=== PATIENT | female | born 1955 | race Hispanic/Latino ===

== ENCOUNTER 2021-04-22 13:41 | Emergency (ER) | payer OTHER ==
--- OUTSIDE RECORDS SUMMARY | 2021-04-22 13:44 | XMS REPORT | Continuity of Care Document ---
:1955 Author Organization [facility] t Address [address] [place] [address] Care Team Providers Name Role Phone Eric Vinson MD Primary Care Physician TYLER BEE Attending Clinician Unavailable Nurse, Pob Immunization Attending Clinician Unavailable Tyler Bee DO Attending Clinician Bibiana GIPSON Attending Clinician Unavailable Payers Payer Name Policy Type Policy Number Effective Date Expiration Date S marta [facility] [id number] 2019 00:00:00 HMO ALLIED BENEFIT [id number] 2014 00:00:00 Problems Condition Condition Condition Status Onset Resolution Last Treating Co mments Source Name Details Category Date Date Treatment Clinician Date Anxiety Anxiety Disease Active [facility] Insomnia Insomnia Disease Active Unive rs ity of [facility] Depression Depression Disease Active U nivers ity of [facility] Arthritis Arthritis Disease Active Uni vers ity of [facility] HLD HLD Disease Active Univers (hyperlipi (hyperlipi it y of demia) demia) [facility] Anemia Anemia Disease Active Overview: Univer s Formattin ity of g of this [place] note Medical might be Branch different from the original. in the past Allergies, Adverse Reactions, Alerts Allergy Allergy Status Severity Reaction(s) Onset Inactive Treating Comm ents Source Name Type Date Date Clinician CODEINE DRUG Active N/V 2015-02 Univers INGREDI 0-09 ity of 00:00: [place] [facility] Codeine Propensi Active Nausea 2015-02 Univers ty to and/or 0-09 ity of adverse Vomiting 00:00: [place] reaction [facility] s [facility] Social History Social Habit Start Date Stop Date Quantity Comments Source History of tobacco Cigarette Smoker University of use [place] [facility] History [facility] o f Alcohol Frequency [place] [facility] History [facility] o f Alcohol Std Drinks [place] [facility] History [facility] o f Alcohol Binge [place] [facility] Alcohol intake 2016-04-18 2016-04-18 0 /d University of 00:00:00 00:00:00 [facility] Cigarettes smoked 2015-08-08 2015-08-08 Univers ity of current (pack per 00:00:00 00:00:00 [facility] ed) - Reported Branch Cigarette 2015-08-08 2015-08-08 University of pack-years 00:00:00 00:00:00 [facility] Alcohol Comment 2015-08-08 2015-08-08 social occasional Un iversity of 00:00:00 00:00:00 sometimes [facility] Tobacco Comment 2015-08-08 2015-08-08 wants to stop on Uni versity of 00:00:00 00:00:00 her own [facility] Sex [birth year] Universit y of 00:00:00 00:00:00 [facility] Smoking Status Start Date Stop Date Source Current some day smoker 2015-08-08 00:00:00 Univ ersity of [facility] Medications Ordered Filled Start Stop Current Ordering Indication Dosage Frequency Signature Comments Components Source Medication Medication Date Date Medication? Clinician (SIG) Name Name aspirin 81 Yes 81mg Take 81 mg U nivers mg chewable 3-10 by mouth ity of tablet 12:04: daily. [place] [facility] acetaminoph Yes [id number] 2 - 1 Univers en-codeine 3-10 tab Every ity of 300-30 mg 00:00: 4hrs as [place] tablet 00 needed for Medical pain or Branch cough requiring narcotic acetaminoph Yes /2 - 1 Uni vers en-codeine 3-10 tab Every ity of 300-30 mg 00:00: 4hrs as [place] tablet 00 needed for Medical pain or Branch cough requiring narcotic traMADOL 2015-02 Yes 50mg Take 1 Univers (ULTRAM) 50 0-09 tablet by ity of mg tablet 00:00: mouth [place] 00 every 6 Medical (six) Branch hours as needed for Pain (scale 7-10). methocarbam 2015-02 Yes 500mg Take 1 Uni vers ol 0-09 tablet by ity of (ROBAXIN) 00:00: mouth 4 [place] 500 mg 00 (four) Medical tablet times Branch daily. pravastatin 2016- Yes 40mg Take 1 Univ ers (PRAVACHOL) 7-08 tablet by ity of 40 mg 00:00: mouth at [place] tablet 00 bedtime. Medical Branch mirtazapine 2015- Yes 15mg Take 1 Univ ers (REMERON) 6-29 tablet by ity o f 15 mg 00:00: mouth at [place] tablet 00 bedtime. Medical Branch hydrOXYzine 2015- Yes 25mg Take 1 Univ ers (ATARAX) 25 6-29 tablet by [place] of mg tablet 00:00[place] 00 bed[place] [facility] [place] Immunizations Ordered Filled Immunization Date Status Comments Guero e Immunization Name Name SARS-COV-2 COVID-19 2020-12-21 Completed Unive rsity of MODERNA BOOSTER 00:00:00 [facility] ica VACCINE Branch SARS-COV-2 COVID-19 2020-04-11 Completed Unive rsity of MODERNA VACCINE 00:00:00 [facility] ical Branch SARS-COV-2 COVID-19 2020-03-14 Completed Unive rsity of MODERNA VACCINE 00:00:00 [facility] Procedures Procedure Date / Time Performed Performing Clinician Guero jose alejandro SARS-COV-2 COVID-19 2020-12-21 17:27:49 Doctor Unassigned, No Un iversity of [place] VACCINE Name [facility] Branch BOOSTER,0.25ML,IM (MODERNA) Encounters Start End Encounter Admission Attending Care Care Encounter Source Date/Time Date/Time Type Type Clinicians Facility Department ID 2020-12-21 2020-12-21 Outpatient R DOROTHEA [facility] [id number] Univers 11:30:00 11:30:00 REUBEN spear [facility] 2020-12-21 2020-12-21 Imm/Inj Nurse, Yeyo Pob Immunization [facility] [id number] Univers 11:19:01 11:19:20 Visit Reuben Bee [id number] itRosalinda [id number] [place] [id number] N[place] dical [facility] [id number] [facility] 2020-04-11 2020-04-11 Outpatient Nuha GIPSON [facility] [id number] Univers 15:40:00 15:40:00 OTIS [id number] [facility] 2020-04-11 2020-04-11 Outpatient Nuha GIPSON [facility] [id number] Univers 15:40:00 15:40:00 OTIS [facility] 2020-03-14 2020-03-14 Outpatient Nuha GIPSON [facility] [id number] Univers 18:00:00 18:00:00 OTIS [facility] 2020-03-14 2020-03-14 Outpatient Nuha GIPSON [facility] [id number] Univers 18:00:00 18:00:00 OTIS [id number] [facility] Results This patient has no known results.
[2021-04-22 15:46] LABS: SARS-COV-2 RT PCR NEGATIVE (NEGATIVE)
[2021-04-22 16:09] LABS: Urine Blood Trace-intact (Negative); Urine Glucose Negative (Negative); Urine Protein Negative (Negative)
[2021-04-22] MEDS ORDERED: NA CHLORIDE 0.9% 1,000 ML ONE (16:17)
[2021-04-22 16:25] LABS: Absolute Lymphocytes (CBC) 1.3 K/uL (0.7-4.9); Hematocrit 36.9 % (36.0-45.0); Lymphocytes % 12.2 % (15.3-44.8); MPV 8.1 fL (7.6-11.3); RBC Red Blood Cell Count 4.02 M/uL (3.86-4.86); Urine Bacteria <20 /HPF (<20); Urine Mucus 1+ /HPF (NONE SEEN); Urine RBC <5 /HPF (NONE SEEN)
--- NOTE | 2021-04-22 17:03 | RAD REPORT ---
EXAM DESCRIPTION: Patricia Pa And Lat (2 Views)04/22/2021 4:26 pm CLINICAL HISTORY: Cough COMPARISON: None FINDINGS: Mild increased density mid lateral right lung Left lung appears clear. The heart is normal size IMPRESSION: Mild increased density mid lateral right lung equivocal for a mild pneumonia
--- NOTE | 2021-04-22 17:42 | ER ---
Nurse's Notes [facility] Name: Consuelo Bliss Age: 65 yrs Sex: Female : 1955 Arrival Date: 04/22/2021 Time: 13:46 Bed 19 Private MD: Diagnosis: Pneumonia, unspecified organism Presentation: 04/22 13:55 Chief complaint: Patient states: she wasn't feeling well last week and called her PCP. ap3 Patient states her PCP started her on a Z-Pack, which she completed Thursday04/20/2021. Patient presents to the ED today with recurring symptoms from last week which include decreased appetite, chills, and generalized fatigue which restarted yesterday 04/21/2021. Coronavirus screen: chills, fatigue. Ebola Screen: No symptoms or risks identified at this time. Initial Sepsis Screen: Does the patient meet any 2 criteria? No. Patient's initial sepsis screen is negative. Does the patient have a suspected source of infection? No. Patient's initial sepsis screen is negative. Risk Assessment: Do you want to hurt yourself or someone else? Patient reports no desire to harm self or others. Onset of symptoms was April 21, 2021. 13:55 Method Of Arrival: Ambulatory ap3 13:55 Acuity: ARMAND 4 ap3 14:01 Acuity: ARMAND 3 jl7 Triage Assessment: 13:59 General: Appears in no apparent distress. Behavior is calm, cooperative, Reports chills ap3 for fatigue for. Pain: Denies pain. Neuro: Level of Consciousness is awake, alert, obeys commands, Gait is steady. Respiratory: Airway is patent Respiratory effort is even, unlabored, Respiratory pattern is regular, symmetrical. GI: Reports anorexia. Historical: - Allergies: 13:58 Singulair; ap3 - Home Meds: 13:58 Xanax 1 mg oral tab [Active]; Omeprazole Oral [Active]; ap3 - PMHx: 13:58 Anxiety; GERD; ap3 - Immunization history:: Client reports receiving the 2nd dose of the Covid vaccine, Pneumococcal vaccine is not up to date, Flu vaccine is up to date. - Social history:: Smoking status: Patient denies any tobacco usage or history of. Screenin:00 Abuse screen: Denies threats or abuse. Nutritional screening: No deficits noted. ap3 Tuberculosis screening: No symptoms or risk factors identified. Fall Risk None identified. No fall in past 12 months (0 pts). Assessment: 16:10 General: Appears comfortable, Behavior is calm, cooperative. Pain: Denies pain. Neuro: ic1 Level of Consciousness is awake, alert, obeys commands, Oriented to person, place, situation. Cardiovascular: No deficits noted. Respiratory: No deficits noted. GI: Reports nausea, vomiting, decreased appetite. : No deficits noted. EENT: No deficits noted. Derm: No deficits noted. Musculoskeletal: No deficits noted. 16:32 Reassessment: Patient appears in no apparent distress at this time. No changes from ic1 previously documented assessment. Patient and/or family updated on plan of care and expected duration. Pain level reassessed. Patient is alert, oriented x 3, equal unlabored respirations, skin warm/dry/pink. 18:35 Reassessment: ERP notified of elevated BP, no new orders at this time. Primary RN ginger7 reports antibiotic just started and pt will be discharged once medication is complete. 18:51 Reassessment: Patient appears in no apparent distress at this time. No changes from ic1 previously documented assessment. Patient and/or family updated on plan of care and expected duration. Pain level reassessed. Patient is alert, oriented x 3, equal unlabored respirations, skin warm/dry/pink. Patient denies pain at this time. Vital Signs: 13:55 BP 147 / 75; Pulse 88; Resp 16; Temp 98.8(O); Pulse Ox 97% ; Weight 72.57 kg; Height 5 ap3 ft. 2 in. (157.48 cm); 16:32 BP 163 / 74; Pulse 80; Resp 16; Pulse Ox 95% on R/A; ic1 18:32 BP 174 / 90; Pulse 74; Resp 15; Pulse Ox 97% ; jl7 18:52 BP 141 / 91; Pulse 87; Resp 16; Pulse Ox 97% on R/A; ic1 19:27 BP 151 / 70 LA Sitting (auto/reg); Pulse 86 MON; Resp 18; Pulse Ox 100% on R/A; Pain sv1 0/10; 13:55 Body Mass Index 29.26 (72.57 kg, 157.48 cm) ap3 ED Course: 13:46 Patient arrived in ED. ja2 13:58 Triage completed. ap3 14:00 Arm band placed on right wrist. ap3 15:02 Brant Tinajero NP is PHCP. pm1 15:02 Gaudencio Manzano MD is Attending Physician. pm1 15:48 Eliana Wade RN is Primary Nurse. ic1 16:10 Patient has correct armband on for positive identification. Bed in low position. Call ic1 light in reach. Side rails up X2. Pulse ox on. NIBP on. Door closed. Lights dimmed. Warm blanket given. 16:12 No provider procedures requiring assistance completed. Inserted saline lock: 20 gauge ic1 in right antecubital area, using aseptic technique. Blood collected. 16:12 Urine Microscopic Only Sent. ic1 16:12 Strep Sent. ic1 16:12 CBC with Automated Diff Sent. ic1 16:13 CBC with Diff Sent. ic1 16:13 BMP Sent. ic1 16:25 Chest Pa And Lat (2 Views) XRAY In Process Unspecified. EDMS 19:27 IV discontinued. sv1 Administered Medications: 16:16 Drug: NS 0.9% 1000 ml Route: IV; Rate: 1000 ml; Site: right antecubital; ic1 19:30 Follow up: Response: No adverse reaction; IV Status: Completed infusion sv1 17:38 CANCELLED (Physician Discretion): AZITHromycin 500 mg PO once pm1 17:47 Not Given (Physician Discretion): Rocephin (cefTRIAXone) 1 grams IM once pm1 17:50 Drug: Rocephin (cefTRIAXone) 1 grams Route: IV; Rate: calculated rate; Infused Over: 30 ic1 mins; Site: right antecubital; Delivery: Primary tubing; 18:30 Follow up: IV Status: Completed infusion; IV Intake: 100ml ic1 18:30 Dru mg of (AZITHromycin 500 mg, NS 0.9% 250 ml) Route: IVPB; Infused Over: 1 hrs; ic1 Site: right antecubital; Intake: 18:30 IV: 100ml; Total: 100ml. ic1 Outcome: 17:40 Discharge ordered by . pm1 19:27 Discharged to home ambulatory. sv1 19:27 Condition: improved 19:27 Discharge instructions given to patient, family. 19:31 Patient left the ED. sv1 Signatures: Dispatcher [employer] EDMS Lior Brant, DISPLAY DESIGNER OUTSIDE DISPLAY DESIGNER OUTSIDE pm1 Martin Carrasquillo RN RN jl7 Pastora Rosales RN RN ap3 Vanna Saldaña Steven, RN RN sv1 Eliana Wade RN RN ic1 Corrections: (The following items were deleted from the chart) 13:59 13:58 Allergies: No Known Allergies; ap3 ap3
--- NOTE | 2021-04-22 17:42 | EDPHYS ---
Physician Documentation [facility] Name: Consuelo Bliss Age: 65 yrs Sex: Female : 1955 Arrival Date: 04/22/2021 Time: 13:46 Bed 19 Private MD: ED Physician Gaudencio Manzano HPI: 04/22 15:53 This 65 yrs old Female presents to ER via Ambulatory with complaints of pm1 Decreased Appetite, Fever. 15:53 The patient or guardian reports cough, and subjective fever. Onset: The pm1 symptoms/episode began/occurred 1 week(s) ago. Severity of symptoms: in the emergency department the symptoms are actually worse. Modifying factors: The symptoms are alleviated by nothing, the symptoms are aggravated by nothing. Associated signs and symptoms: Pertinent positives: decreased appetite. The patient has not experienced similar symptoms in the past. The patient has not recently seen a physician, the patient's primary care provider is Dr. Vinson. Historical: - Allergies: 13:58 Singulair; ap3 - Home Meds: 13:58 Xanax 1 mg oral tab [Active]; Omeprazole Oral [Active]; ap3 - PMHx: 13:58 Anxiety; GERD; ap3 - Immunization history:: Client reports receiving the 2nd dose of the Covid vaccine, Pneumococcal vaccine is not up to date, Flu vaccine is up to date. - Social history:: Smoking status: Patient denies any tobacco usage or history of. ROS: 15:53 Cardiovascular: Negative for chest pain, palpitations, and edema. pm1 15:53 Abdomen/GI: Negative for abdominal pain, nausea, vomiting, diarrhea, and constipation, Back: Negative for injury and pain, MS/Extremity: Negative for injury and deformity, Skin: Negative for injury, rash, and discoloration, Neuro: Negative for headache, weakness, numbness, tingling, and seizure. 15:53 Constitutional: Positive for fever, Decreased appetite. 15:53 Respiratory: Positive for cough, Negative for shortness of breath, sputum production. 15:53 All other systems are negative. Exam: 15:53 Constitutional: This is a well developed, well nourished patient who is awake, alert, pm1 and in no acute distress. Head/Face: Normocephalic, atraumatic. 15:53 Back: No spinal tenderness. No costovertebral tenderness. Full range of motion. Skin: Warm, dry with normal turgor. Normal color with no rashes, no lesions, and no evidence of cellulitis. MS/ Extremity: Pulses equal, no cyanosis. Neurovascular intact. Full, normal range of motion. 15:53 Eyes: Exam is negative for acute changes, Periorbital structures: appear normal, Extraocular movements: no acute changes, Conjunctiva: no acute changes, no injection. 15:53 ENT: Exam is negative for acute changes, External ear(s): are unremarkable, Ear canal(s): are normal, TM's: are normal, Mouth: no acute changes, Lips: normal, moist, Oral mucosa: normal, pink and intact, moist, Posterior pharynx: no acute changes. 15:53 Cardiovascular: Exam negative for acute changes, Rate: normal, Rhythm: regular, Pulses: no pulse deficits are appreciated, Heart sounds: normal. 15:53 Respiratory: Exam negative for acute changes, respiratory distress, shortness of breath, Breath sounds: are clear throughout. 15:53 Abdomen/GI: Exam negative for acute changes, Inspection: abdomen appears normal, Palpation: abdomen is soft and non-tender, in all quadrants. 15:53 Neuro: Exam negative for acute changes, Orientation: is normal, Mentation: is normal, Motor: is normal, moves all fours. Vital Signs: 13:55 BP 147 / 75; Pulse 88; Resp 16; Temp 98.8(O); Pulse Ox 97% ; Weight 72.57 kg; Height 5 ap3 ft. 2 in. (157.48 cm); 16:32 BP 163 / 74; Pulse 80; Resp 16; Pulse Ox 95% on R/A; ic1 18:32 BP 174 / 90; Pulse 74; Resp 15; Pulse Ox 97% ; jl7 18:52 BP 141 / 91; Pulse 87; Resp 16; Pulse Ox 97% on R/A; ic1 19:27 BP 151 / 70 LA Sitting (auto/reg); Pulse 86 MON; Resp 18; Pulse Ox 100% on R/A; Pain sv1 0/10; 13:55 Body Mass Index 29.26 (72.57 kg, 157.48 cm) ap3 MDM: 15:02 Patient medically screened. pm1 17:39 Data reviewed: vital signs. Data interpreted: Pulse oximetry: on room air is 95 %. pm1 Interpretation: normal. Counseling: I had a detailed discussion with the patient and/or guardian regarding: the historical points, exam findings, and any diagnostic results supporting the discharge/admit diagnosis, lab results, radiology results, the need for outpatient follow up, to return to the emergency department if symptoms worsen or persist or if there are any questions or concerns that arise at home. 17:39 Physician consultation: MD Vinson was contacted at 17:39, regarding patient's condition, pm1 He will follow-up with the patient in a couple days. 19:03 ED course: Patient completed z-gayathri 2 days ago. Uncertain if pneumonia present prior to pm1 starting antibiotics. Abx was prescribed without office visit or evaluation per daughter, it was just called in. Therefore will discharge the patient home with Levaquin for treatment of community-acquired pneumonia. 04/22 14:02 Order name: COVID-19/FLU A+B (Document "Date of Onset" if Symptomatic); Complete Time: ap3 15:52 04/22 15:52 Order name: CBC with Diff pm1 04/22 15:52 Order name: BMP; Complete Time: 16:39 pm1 04/22 15:52 Order name: Urine Microscopic Only; Complete Time: 16:39 pm1 04/22 15:53 Order name: Strep; Complete Time: 16:39 pm1 04/22 15:53 Order name: CBC with Automated Diff; Complete Time: 16:39 EDMS 04/22 15:52 Order name: Chest Pa And Lat (2 Views) XRAY; Complete Time: 17:28 pm1 04/22 16:08 Order name: Urine Dipstick-Ancillary; Complete Time: 16:16 EDMS 04/22 16:35 Order name: Throat Culture EDMS 04/22 15:52 Order name: IV Saline Lock; Complete Time: 16:13 pm1 04/22 15:52 Order name: Urine Dipstick-Ancillary (obtain specimen); Complete Time: 16:13 pm1 Administered Medications: 16:16 Drug: NS 0.9% 1000 ml Route: IV; Rate: 1000 ml; Site: right antecubital; ic1 19:30 Follow up: Response: No adverse reaction; IV Status: Completed infusion sv1 17:38 CANCELLED (Physician Discretion): AZITHromycin 500 mg PO once pm1 17:47 Not Given (Physician Discretion): Rocephin (cefTRIAXone) 1 grams IM once pm1 17:50 Drug: Rocephin (cefTRIAXone) 1 grams Route: IV; Rate: calculated rate; Infused Over: 30 ic1 mins; Site: right antecubital; Delivery: Primary tubing; 18:30 Follow up: IV Status: Completed infusion; IV Intake: 100ml ic1 18:30 Dru mg of (AZITHromycin 500 mg, NS 0.9% 250 ml) Route: IVPB; Infused Over: 1 hrs; ic1 Site: right antecubital; Disposition: 19:39 Co-signature as Attending Physician, Gaudencio Manzano MD I agree with the assessment and kdr plan of care. Disposition Summary: 04/22/21 17:40 Discharge Ordered Location: Home pm1 Problem: new pm1 Symptoms: have improved pm1 Condition: Stable pm1 Diagnosis - Pneumonia, unspecified organism pm1 Followup: pm1 - With: Emergency Department - When: As needed - Reason: Worsening of condition Followup: pm1 - With: Private Physician - When: 2 - 3 days - Reason: Recheck today's complaints, Continuance of care, Re-evaluation by your physician Discharge Instructions: - Discharge Summary Sheet pm1 - Community-Acquired Pneumonia, Adult pm1 Forms: - Medication Reconciliation Form pm1 - Thank You Letter pm1 - Antibiotic Education pm1 - Prescription Opioid Use pm1 Prescriptions: - Guaifenesin AC 10-100 mg/5 mL Oral Liquid - take 10 milliliters by ORAL route every 4 hours As needed; 240 milliliter; pm1 Refills: 0, Product Selection Permitted - levofloxacin 750 mg Oral tablet - take 1 tablet by ORAL route once daily for 5 days; 5 tablet; Refills: 0, pm1 Product Selection Permitted - Diflucan 150 mg Oral Tablet - take 1 tablet by ORAL route one time for 1 day; 1 tablet; Refills: 0, Product pm1 Selection Permitted Signatures: Dispatcher [employer] EDNV Gaudencio Manzano MD MD kdr Marinas, Patrick, NP CRUCIBLE FURNACE TENDER pm1 Pastora Rosales RN RN ap3 Eliana Wade RN RN ic1 Kwadwo Llamas RN sv1 Corrections: (The following items were deleted from the chart) 13:59 13:58 Allergies: No Known Allergies; ap3 ap3 17:38 17:30 AZITHromycin 500 mg PO once ordered. pm1 pm1
[2021-04-22] MEDS ORDERED: CEFTRIAXONE 1000 MG/VIAL ONE (17:51)
[2021-04-22] MEDS ORDERED: NA CHLORIDE 0.9% 100 ML ONE (17:51)
[2021-04-22] MEDS ORDERED: AZITHROMYCIN 500 MG INJ IVPB ONE (17:55)
[2021-04-22] MEDS ORDERED: NA CHLORIDE 0.9% 250 ML ONE (17:56)
[2021-04-22 19:40] VITALS: TEMP 98.8
[2021-04-22 19:46] VITALS: BP 151/70; O2SAT 100
== END 2021-04-22 19:31 | disposition home or self-care (01) ==
LOC: ER 13:41
DX: J18.9 Pneumonia, unspecified organism (principal); F41.9 Anxiety disorder, unspecified; Z88.8 Allergy status to other drugs, medicaments and biological substances; Z20.822 Contact with and (suspected) exposure to COVID-19
CPT/HCPCS: 96365; 96361; 87070; 85025; 80048; 36415; 87081; 0240U; 71046; 96375; 99284; J0456; J7050; J7030; 81003; 81015

== ENCOUNTER 2021-10-15 14:42 | Emergency (ER) | payer OTHER ==
--- OUTSIDE RECORDS SUMMARY | 2021-10-15 14:45 | XMS REPORT | Continuity of Care Document ---
:1955 Author Organization [facility] t Address [address] [place] [address] Care Team Providers Name Role Phone Eric Vinson MD Primary Care Physician FARHAN BEE Attending Clinician Unavailable Nurse, Adc Pob Immunization Attending Clinician Unavailable Farhan Bee DO Attending Clinician OTIS GIPSON Attending Clinician Unavailable Payers Payer Name Policy Type Policy Number Effective Date Expiration Date S marta [employer] PLS [id number] 2019 00:00:00 HMO ALLIED BENEFIT [id number] 2014 00:00:00 Problems Condition Condition Condition Status Onset Resolution Last Treating Co mments Source Name Details Category Date Date Treatment Clinician Date Anxiety Anxiety Disease Active [facility] Insomnia Insomnia Disease Active Unive rs ity [facility] Depression Depression Disease Active U nivers ity of [facility] Arthritis Arthritis Disease Active Uni vers ity [facility] HLD HLD Disease Active Univers (hyperlipi (hyperlipi it y of demia) demia) [facility] Anemia Anemia Disease Active Overview: Univer s Formattin ity of g of this [place] note Medical might be Branch different from the original. in the past Allergies, Adverse Reactions, Alerts Allergy Allergy Status Severity Reaction(s) Onset Inactive Treating Comm ents Source Name Type Date Date Clinician CODEINE DRUG Active N/V 2015-02 Univers INGREDI 0-09 ity of 00:00: [address] Codeine Propensi Active Nausea 2015-02 Univers ty to and/or 0-09 ity of adverse Vomiting 00:00: [place] reaction 00 Medical s Branch Social History Social Habit Start Date Stop Date Quantity Comments Source History of tobacco Cigarette Smoker University of use [place] [facility] History SDOH University o f Alcohol Frequency [place] [facility] History SDCA University o f Alcohol Std Drinks [place] [facility] History [facility] o f Alcohol Binge [place] [facility] Alcohol intake 2016-04-18 2016-04-18 0 /d University of 00:00:00 00:00:00 [facility] Branch Cigarettes smoked 2015-08-08 2015-08-08 Univers ity of current (pack per 00:00:00 00:00:00 [facility] ) - Reported Branch Cigarette 2015-08-08 2015-08-08 University of pack-years 00:00:00 00:00:00 [facility] Alcohol Comment 2015-08-08 2015-08-08 social occasional Un iversity of 00:00:00 00:00:00 sometimes [facility] Tobacco Comment 2015-08-08 2015-08-08 wants to stop on Uni versity of 00:00:00 00:00:00 her own [facility] Sex Ass[birth year] Universit y of 00:00:00 00:00:00 [facility] Smoking Status Start Date Stop Date Source Current some day smoker 2015-08-08 00:00:00 [facility] Medications Ordered Filled Start Stop Current Ordering Indication Dosage Frequency Signature Comments Components Source Medication Medication Date Date Medication? Clinician (SIG) Name Name aspirin 81 Yes 81mg Take 81 mg U nivers mg chewable 3-10 by mouth ity of tablet 12:04: daily. [place] [facility] acetaminoph Yes [id number] 2 - 1 Univers en-codeine 3-10 tab Every ity of 300-30 mg 00:00: 4hrs as [place] tablet 00 needed for Medical pain or Branch cough requiring narcotic acetaminoph Yes 2 - 1 Uni vers en-codeine 3-10 tab [...] (four) Medical tablet times Branch daily. pravastatin 2016 Yes 40mg Take 1 Univ ers (PRAVACHOL) 7-08 tablet by ity of 40 mg 00:00: mouth at [place] tablet 00 bedtime. Medical Branch mirtazapine Yes 15mg Take 1 Univ ers (REMERON) 6-29 tablet by ity o f 15 mg 00:00: mouth at [place] tablet 00 bedtime. Medical Branch hydrOXYzine Yes 25mg Take 1 Univ ers (ATARAX) 25 6-29 tablet by [place]y of [place] Immunizations Ordered Filled Immunization Date Status Comments Sour e Immunization Name Name SARS-COV-2 COVID-19 2020-12-21 Completed Unive rsity of MODERNA BOOSTER 00:00:[address] [facility] VACCINE Branch SARS-COV-2 COVID-19 2020-04-11 Completed Unive rsity of [facility]ER[facility] VACCINE 00:00:00 [facility] SARS-COV-2 COVID-19 2020-03-14 Completed Unive rsity of MODERNA VACCINE 00:00:00 [facility] Procedures Procedure Date / Time Performed Performing Clinician [facility] e SARS-COV-2 COVID-19 2020-12-21 17:27:49 Doctor Unassigned, No Un iversity of [place] VACCINE Name [facility] Branch BOOSTER,0.25ML,IM (MODERNA) Encounters Start End Encounter Admission Attending Care Care Encounter Source Date/Time Date/Time Type Type Clinicians Facility Department ID 2020-12-21 2020-12-21 Outpatient R [facility] [id number] Univers 11:30:00 11:30:00 FARHAN spear [facility] 2020-12-21 2020-12-21 Imm/Inj Nurse, Adc Pob Immunization [facility] [id number] Univers 11:19:01 11:19:20 Visit Farhan Bee [id number] Sakina [id number] Horacio HOOVERSHAYYIO [id number] Wi d[place] [id number] Branch [facility] 2020-04-11 2020-04-11 Outpatient Nuha GIPSON [facility] [id number] Univers 15:40:00 15:40:00 OTIS [id number] [facility] 2020-04-11 2020-04-11 [facility] [id number] Univers 15:40:00 15:40:00 OTIS [facility] 2020-03-14 2020-03-14 Outpatient Nuha GIPSON [facility] [id number] Univers 18:00:00 18:00:00 OTIS [facility] 2020-03-14 2020-03-14 [facility] [id number] Univers 18:00:00 18:00:00 OTIS [id number] [facility] Results This patient has no known results.
[2021-10-15] MEDS ORDERED: IBUPROFEN 400 MG TAB ONE (17:50)
[2021-10-15] MEDS ORDERED: HYDROCODONE/APAP 7.5/325 MG TAB ONE (17:50)
--- NOTE | 2021-10-15 18:47 | ER ---
Nurse's Notes [facility] Name: Consuelo Bliss Age: 65 yrs Sex: Female : 1955 Arrival Date: 10/15/2021 Time: 14:45 Bed 11 Private MD: Eric Vinson Diagnosis: Pain in right shoulder Presentation: 10/15 14:54 Chief complaint: Patient states: My right should started hurting so bad last night and bm7 today I can not move it our touch it. I fell on it last year and bruised it so I am not sure if it has something to do with that. Coronavirus screen: At this time, the client does not indicate any symptoms associated with coronavirus-19. Ebola Screen: No symptoms or risks identified at this time. Initial Sepsis Screen: Does the patient meet any 2 criteria? No. Patient's initial sepsis screen is negative. Does the patient have a suspected source of infection? No. Patient's initial sepsis screen is negative. Risk Assessment: Do you want to hurt yourself or someone else? Patient reports no desire to harm self or others. Onset of symptoms was October 15, 2021. 14:54 Method Of Arrival: Ambulatory bm7 14:54 Acuity: ARMAND 4 bm7 Triage Assessment: 14:56 General: Appears in no apparent distress. uncomfortable, Behavior is calm, cooperative, bm7 appropriate for age. Pain: Complains of pain in anterior aspect of right shoulder and posterior aspect of right shoulder. EENT: No deficits noted. No signs and/or symptoms were reported regarding the EENT system. Neuro: No deficits noted. Cardiovascular: No deficits noted. Respiratory: No deficits noted. GI: No deficits noted. No signs and/or symptoms were reported involving the gastrointestinal system. : No deficits noted. No signs and/or symptoms were reported regarding the genitourinary system. Derm: No deficits noted. No signs and/or symptoms reported regarding the dermatologic system. Musculoskeletal: Reports pain in anterior aspect of right shoulder and posterior aspect of right shoulder. Historical: - Allergies: 14:56 Singulair; bm7 - Home Meds: 14:56 Xanax 1 mg Oral tab [Active]; Omeprazole Oral [Active]; bm7 - PMHx: 14:56 Anxiety; GERD; bm7 - PSHx: 14:56 None; bm7 - Immunization history:: Adult Immunizations up to date, Client reports receiving the 2nd dose of the Covid vaccine, Client reports receiving the 1st dose of the Covid vaccine. - Social history:: Smoking status: Patient denies any tobacco usage or history of. Screenin:15 Abuse screen: Denies threats or abuse. Denies injuries from another. Nutritional ll1 screening: No deficits noted. Tuberculosis screening: No symptoms or risk factors identified. Fall Risk No fall in past 12 months (0 pts). No secondary diagnosis (0 pts). No IV (0 pts). Ambulatory Aid- None/Bed Rest/Nurse Assist (0 pts). Gait- Normal/Bed Rest/Wheelchair (0 pts) Mental Status- Oriented to own ability (0 pts). Total Pena Fall Scale indicates No Risk (0-24 pts). Assessment: 17:15 General: Appears in no apparent distress. Behavior is calm, cooperative, Received care ll1 of pt from [facility], ambulatory without distress. Pt reports sudden onset of right shoulder pain last night that has not improved. Pt denies injury. 17:15 Musculoskeletal: Circulation, motion, and sensation intact. Capillary refill < 3 ll1 seconds, Pt reports pain in right shoulder with movement. 19:10 General: Pt discharged without sling due to sling being unavailable. ll1 Vital Signs: 14:54 BP 139 / 80; Pulse 82; Resp 16; Temp 98.5(TE); Pulse Ox 100% on R/A; Weight 70.31 kg bm7 (R); Height 5 ft. 1 in. (154.94 cm); Pain 10/10; 17:15 BP 138 / 80; Pulse 78; Resp 18; Pulse Ox 100% ; Pain 5/10; ll1 14:54 Body Mass Index 29.29 (70.31 kg, 154.94 cm) bm7 ED Course: 14:45 Patient arrived in ED. mr 14:45 Eric Vinson is Private Physician. mr 14:56 Triage completed. bm7 14:56 Arm band placed on right wrist. Patient placed in waiting room, Patient notified of bm7 wait time. 14:59 Gregorio Glynn PA is PHCP. cp 14:59 Robb Hennessy MD is Attending Physician. cp 17:15 Patient has correct armband on for positive identification. Bed in low position. Call ll1 light in reach. Adult w/ patient. Warm blanket given. 17:15 No provider procedures requiring assistance completed. Patient did not have IV access ll1 during this emergency room visit. 17:49 Flor Kenny, RN is Primary Nurse. kb3 18:45 Kwadwo Moreno MD is Referral Physician. cp Administered Medications: 17:46 Drug: Ibuprofen 800 mg Route: PO; 3 18:30 Follow up: Response: No adverse reaction; Pain is decreased 3 17:46 Drug: Hydrocodone-Acetaminophen (7.5 mg-325 mg) 1 tabs Route: PO; 3 18:30 Follow up: Response: No adverse reaction; Pain is decreased kb3 Medication: 17:15 VIS not applicable for this client. ll1 Outcome: 18:46 Discharge ordered by . cp 19:21 Discharged to home ambulatory, with family. ll1 19:21 Condition: good 19:21 Discharge instructions given to patient, Instructed on discharge instructions, follow up and referral plans. medication usage, Demonstrated understanding of instructions, follow-up care, medications, Prescriptions given X 2. 19:22 Patient left the ED. 1 Signatures: Alessia Garibay mr Gregorio Glynn, CASEY PA cp Mary Mendenhall RN RN 1 Rosamaria Stout, RN RN 7 Sendy Mccall RN RN 3 Flor Kenny, RN RN kb3
--- NOTE | 2021-10-15 18:47 | EDPHYS ---
Physician Documentation [facility] Name: Consuelo Bliss Age: 65 yrs Sex: Female : 1955 Arrival Date: 10/15/2021 Time: 14:45 Bed 11 Private MD: Eric Vinson ED Physician Robb Hennessy HPI: 10/15 17:15 This 65 yrs old Female presents to ER via Ambulatory with complaints of Arm cp Pain. 17:15 The patient or guardian complains of pain, that is acute. cp 17:15 The complaints affect the right shoulder. Context: resulted from unknown cause. Onset: cp The symptoms/episode began/occurred 1 week(s) ago. Treatment prior to arrival includes: no previous treatment. Modifying factors: the symptoms are aggravated by movement. Associated signs and symptoms: Pertinent positives: decreased range of motion, Pertinent negatives: deformity, numbness, warmth, skin rash. 17:15 Severity of symptoms: in the emergency department the symptoms are unchanged, despite cp home interventions. Historical: - Allergies: 14:56 Singulair; bm7 - Home Meds: 14:56 Xanax 1 mg Oral tab [Active]; Omeprazole Oral [Active]; bm7 - PMHx: 14:56 Anxiety; GERD; bm7 - PSHx: 14:56 None; bm7 - Immunization history:: Adult Immunizations up to date, Client reports receiving the 2nd dose of the Covid vaccine, Client reports receiving the 1st dose of the Covid vaccine. - Social history:: Smoking status: Patient denies any tobacco usage or history of. ROS: 17:20 Constitutional: Negative for body aches, chills, fever, poor PO intake. cp 17:20 Eyes: Negative for injury, pain, redness, and discharge. cp 17:20 Neck: Negative for pain with movement, pain at rest, stiffness. 17:20 Cardiovascular: Negative for chest pain, edema, palpitations. 17:20 Respiratory: Negative for cough, shortness of breath, wheezing. 17:20 Abdomen/GI: Negative for abdominal pain, nausea, vomiting, and diarrhea. 17:20 Back: Negative for pain at rest, pain with movement. 17:20 MS/extremity: Positive for decreased range of motion, pain, tenderness, of the right shoulder, Negative for injury or acute deformity, paresthesias. 17:20 Skin: Negative for cellulitis, rash. 17:20 All other systems are negative. Exam: 17:25 Constitutional: The patient appears in no acute distress, alert, awake, non-toxic, well cp developed, well nourished, uncomfortable. 17:25 Head/Face: Normocephalic, atraumatic. cp 17:25 Eyes: Periorbital structures: appear normal, Conjunctiva: normal, no exudate, no injection, Sclera: no appreciated abnormality, Lids and lashes: appear normal, bilaterally. 17:25 ENT: External ear(s): are unremarkable, Nose: is normal, Mouth: Lips: moist, Oral mucosa: pink and intact, moist, Posterior pharynx: Airway: no evidence of obstruction, patent. 17:25 Neck: C-spine: vertebral tenderness, is not appreciated, crepitus, is not appreciated, ROM/movement: is normal, is supple, without pain, no range of motions limitations. 17:25 Chest/axilla: Inspection: normal, Palpation: is normal, no crepitus, no tenderness. 17:25 Cardiovascular: Rate: normal, Rhythm: regular, Pulses: Pulses are 2+ in right radial artery. 17:25 Respiratory: the patient does not display signs of respiratory distress, Respirations: normal, no use of accessory muscles, no retractions, labored breathing, is not present, Breath sounds: are clear throughout, no decreased breath sounds, no stridor, no wheezing. 17:25 Abdomen/GI: Inspection: abdomen appears normal. 17:25 Musculoskeletal/extremity: Extremities: grossly normal except: noted in the right shoulder: decreased ROM, pain, tenderness to lateral aspect right shoulder, There is no evidence of deformity, ROM: limited passive range of motion, in the right shoulder, limited passive range of motion due to pain, in the right shoulder, the right hand and right arm Sensation intact. 17:25 Skin: cellulitis, is not appreciated, no rash present. 17:25 Neuro: Orientation: to person, place \T\ time. Mentation: is normal. Vital Signs: 14:54 BP 139 / 80; Pulse 82; Resp 16; Temp 98.5(TE); Pulse Ox 100% on R/A; Weight 70.31 kg bm7 (R); Height 5 ft. 1 in. (154.94 cm); Pain 10/10; 17:15 BP 138 / 80; Pulse 78; Resp 18; Pulse Ox 100% ; Pain 5/10; ll1 14:54 Body Mass Index 29.29 (70.31 kg, 154.94 cm) bm7 MDM: 17:36 Patient medically screened. cp 18:45 Data reviewed: vital signs, nurses notes, radiologic studies, plain films. cp 18:45 Differential diagnosis: dislocation, contusion, tendonitis. Test interpretation: by ED cp physician or midlevel provider: plain radiologic studies. Counseling: I had a detailed discussion with the patient and/or guardian regarding: the historical points, exam findings, and any diagnostic results supporting the discharge/admit diagnosis, radiology results, the need for outpatient follow up, a orthopedic surgeon, to return to the emergency department if symptoms worsen or persist or if there are any questions or concerns that arise at home. Response to treatment: the patient's symptoms have markedly improved after treatment, and as a result, I will discharge patient. 10/15 18:56 Order name: [facility] 10/15 18:42 Order name: Ricci Administered Medications: 17:46 Drug: Ibuprofen 800 mg Route: PO; 3 18:30 Follow up: Response: No adverse reaction; Pain is decreased kb3 17:46 Drug: Hydrocodone-Acetaminophen (7.5 mg-325 mg) 1 tabs Route: PO; eh3 18:30 Follow up: Response: No adverse reaction; Pain is decreased kb3 Disposition Summary: 10/15/21 18:46 Discharge Ordered Location: Home cp Problem: new cp Symptoms: have improved cp Condition: Stable cp Diagnosis - Pain in right shoulder cp Followup: cp - With: Kwadwo Moreno MD - When: 2 - 3 days - Reason: Recheck today's complaints Discharge Instructions: - Discharge Summary Sheet cp - Shoulder Pain cp - Shoulder Range of Motion Exercises cp Forms: - Medication Reconciliation Form cp - Thank You Letter cp - Antibiotic Education cp - Prescription Opioid Use cp Prescriptions: - Cyclobenzaprine 10 mg Oral Tablet - take 1 tablet by ORAL route every 8 hours As needed; 20 tablet; Refills: 0, cp Product Selection Permitted - Diclofenac Sodium 75 mg Oral Tablet Sustained Release - take 1 tablet by ORAL route 2 times per day; 30 tablet; Refills: 0, Product cp Selection Permitted Addendum: 10/16/2021 22:32 Co-signature as Attending Physician, Robb Hennessy MD. r n Signatures: Dispatcher [employer] Robb Ashley MD MD rn Gregorio Glynn PA PA cp McCarthy, Brittany, RN RN bm7 Sendy Mccall RN RN eh3 Flor Kenny RN kb3
--- NOTE | 2021-10-15 18:55 | RAD REPORT ---
EXAM DESCRIPTION: RAD - Shoulder Right 2 View - 10/15/2021 6:36 pm CLINICAL HISTORY: pain COMPARISON: No comparisons FINDINGS/IMPRESSION: No acute fracture. Right AC joint degenerative mild right glenohumeral joint de generative changes.
[2021-10-15 22:06] VITALS: TEMP 98.5; O2SAT 100
[2021-10-15 22:09] VITALS: BP 138/80
== END 2021-10-15 19:22 | disposition home or self-care (01) ==
LOC: ER 14:42
DX: M25.511 Pain in right shoulder (principal); F41.9 Anxiety disorder, unspecified; K21.9 Gastro-esophageal reflux disease without esophagitis; Z88.8 Allergy status to other drugs, medicaments and biological substances
CPT/HCPCS: 99283

== ENCOUNTER 2022-04-01 16:01 | Emergency (ER) | payer OTHER ==
--- OUTSIDE RECORDS SUMMARY | 2022-04-01 16:05 | XMS REPORT | Continuity of Care Document ---
:1955 Author Organization [facility] t Address [address] [place] [address] Care Team Providers Name Role Phone Eric Vinson MD Primary Care Physician Manolo Quiñonez Attending Clinician Unavailable FARHAN BEE Attending Clinician Unavailable Nurse, Adc Pob Immunization Attending Clinician Unavailable Farhan Bee DO Attending Clinician OTIS GIPSON Attending Clinician Unavailable Payers Payer Name Policy Type Policy Effective Date Expiration Date Sour ce Number [facility] 53 [id number] Commo n Spirit DUAL MCR WELLMED - [facility]MANA GOLD [facility] [id number] 2019 HMO 00:00:00 ALLIED BENEFIT [id number] 2014 00:00:00 Problems Condition Condition Condition Status Onset Resolution Last Treating Co mments Source Name Details Category Date Date Treatment Clinician Date Anemia Anemia Disease Active Overview: Univer s Formattin ity of g of this [place] note Medical might be Branch different from the original. in the past [id number] Generalize Problem Com mon d anxiety Spirit disorder - [facility] [id number] Moderate Problem Commo n major Spirit depression - CHI , single [facility] [id number] EMILY Problem Common (obstructi Spirit ve sleep - CHI apnea) [facility] [id number] Body mass Problem Com mon index Spirit [BMI] - 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[id number] GERD Problem Common without Spirit esophagiti - CHI s [facility] Anxiety An[facility]omnia Ins[facility] Disease [facility] Depression Depression Disease Active U nivers ity [facility] Arthritis Arthritis Disease Active Uni [facility] HLD HLD Disease Active Univers (hyperlipi (hyperlipi it y of demia) demia) [facility] Allergies, Adverse Reactions, Alerts Allergy Allergy Status Severity Reaction(s) Onset Inactive Treating Comm ents Source Name Type Date Date Clinician CODEINE DRUG Active N/V 2015-02 Univers INGREDI 0-09 ity of 00:00: [address] Codeine Propensi Active Nausea 2015-02 Univers ty to and/or 0-09 ity of adverse Vomiting 00:00: [place] reaction Medical s [place] Social History Social Habit Start Date Stop Date Quantity Comments Source History [facility] o f Alcohol Frequency [facility] Branch History [facility] o f Alcohol Std Drinks [facility] History [facility] o f Alcohol Binge [facility] [place] History of Tobacco Common Spirit - Use [facility] Sex Assigned At Common Sp leesa - [facility] Alcohol intake 2016-04-18 2016-04-18 0 /d University of 00:00:00 00:00:00 [facility] Cigarettes smoked 2015-08-08 2015-08-08 Univers ity of current (pack per 00:00:00 00:00:00 [facility]) - Reported Branch Cigarette 2015-08-08 2015-08-08 University of pack-years 00:00:00 00:00:00 [facility] Alcohol Comment 2015-08-08 2015-08-08 social occasional Un iversity of 00:00:00 00:00:00 sometimes [facility] Tobacco Comment 2015-08-08 2015-08-08 wants to stop on Uni versity of 00:00:00 00:00:00 her own [facility] Smoking Status Start Date Stop Date Source Former Smoker 2022-03-20 00:00:00 2022-03-20 00:00:00 Common S pirit - [facility] Ce nter Current some day 2015-08-08 00:00:00 [facility] smoker [facility] Medications Ordered Filled Start Stop Current Ordering Indication Dosage Frequency Signature Comments Components Source Medication Medication Date Date Medication? Clinician (SIG) Name Name buPROPion buPROPion No 1{table QD buPROPion HCl ER (SR) HCl ER (SR) 2-09 t_in_th HCl ER 150 MG 150 MG 00:00: e_morni (SR) 150 00 ng} MG buPROPion buPROPion No 1{table QD buPROPion HCl ER (SR) HCl ER (SR) 2-09 t_in_th HCl ER 150 MG 150 MG 00:00: e_morni (SR) 150 00 ng} MG aspirin 81 Yes 81mg Take 81 mg U nivers mg chewable 3-10 by mouth ity of tablet 12:04: daily. [place] [facility] acetaminoph Yes [id number] 02/10 Univers en-codeine 3-10 tab Every ity of 300-30 mg 00:00: 4hrs as [place] tablet 00 needed for Medical pain or Branch cough requiring narcotic acetaminoph Yes 2 - Uni vers en-codeine 3-10 tab Every ity [...] (four) Medical tablet times Branch daily. pravastatin 2016-0 Yes 40mg Take 1 Univ ers (PRAVACHOL) 7-08 tablet by ity of 40 mg 00:00: mouth at [place] tablet 00 bedtime. Medical Branch mirtazapine 2016-0 Yes 15mg Take 1 Univ ers (REMERON) 6-29 tablet by ity o f 15 mg 00:00: mouth at [place] tablet 00 bedtime. Medical Branch hydrOXYzine 2016-0 Yes 25mg Take 1 Univ ers (ATARAX) 25 6-29 tablet by ity of mg tablet 00:00: [place] 00 bedtime. Medical Branch Pantoprazol Pantoprazol No 1{table QD Pantoprazo e Sodium 40 e Sodium 40 t} le Sodium MG MG 40 MG ALPRAZolam ALPRAZolam No 1{table BID ALPRAZolam 1 MG 1 MG t} 1 MG Centrum Centrum No Centrum Silver Silver Silver 50+Women 50+Women 50+Women Pantoprazol Pantoprazol No 1{table QD Pantoprazo e Sodium 40 e Sodium 40 t} le Sodium MG MG 40 MG ALPRAZolam ALPRAZolam No 1{table BID ALPRAZolam 1 MG 1 MG t} 1 MG Centrum Centrum No Centrum Silver Silver Silver 50+Women 50+Women 50+Women Immunizations Ordered Filled Immunization Date Status Comments Sourc e Immunization Name Name SARS-COV-2 COVID-19 2020-12-21 Completed Unive rsity of MODERNA BOOSTER 00:00:00 [facility] VACCINE Branch SARS-COV-2 COVID-19 2020-04-11 Completed Unive rsity of MOD[facility]ACC[facility] SARS-COV-2 COVID-19 2020-03-14 Completed Unive rsity of MODERNA VACCINE 00:00:00 [facility] Vital Signs Vital Name Observation Time Observation Value Comments Source height 2022-03-20 10:00:00 62.5 [in_i] Common S pirit [facility] weight 2022-03-20 10:00:00 182.2 [lb_av] Common [facility] temperature 2022-03-20 10:00:00 96.9 [degF] Common [facility] bmi 2022-03-20 10:00:00 32.79 kg/m2 [facility] oximetry 2022-03-20 10:00:00 98 % [facility] respiratory rate 2022-03-20 10:00:00 18 /min Comm on [facility] blood pressure 2022-03-20 10:00:00 130 mm[Hg] Common [facility] - systolic [facility] blood pressure 2022-03-20 10:00:00 69 mm[Hg] Common [facility] diastolic [facility] height 2022-03-20 09:00:00 62.5 [in_i] [facility] weight 2022-03-20 09:00:00 182.2 [lb_av] [facility] temperature 2022-03-20 09:00:00 96.9 [degF] [facility] bmi 2022-03-20 09:00:00 32.79 kg/m2 [facility] oximetry 2022-03-20 09:00:00 98 % [facility] respiratory rate 2022-03-20 09:00:00 18 /min Comm on [facility] blood pressure 2022-03-20 09:00:00 130 mm[Hg] [facility] systolic [facility] blood pressure 2022-03-20 09:00:00 69 mm[Hg] [facility] diastolic [facility] Procedures Procedure Date / Time Performed Performing Clinician [facility] e SARS-COV-2 COVID-19 2020-12-21 17:27:49 Doctor Unassigned, No [facility] [place] VACCINE Name Medical Branch BOOSTER,0.25ML,IM (MODERNA) Encounters Start End Encounter Admission Attending Care Care Encounter Source Date/Time Date/Time Type Type Clinicians Facility Department ID 2022-03-20 [facility] [id number] Common 08:17:02 [facility] [id number] [facility] 2022-03-20 2022-03-20 SUB ANNUAL STLMLC ST[facility] [id number] Common 00:00:00 00:00:00 MCR Spirit WELLNESS - CHI VISIT [facility] 2022-03-20 2022-03-20 OFFICE STLMLC ST[facility]MLC [id number] Co mmon 00:00:00 00:00:00 VISIT NEW Spir it PT LEVEL 4 - CHI [facility] 2020-12-21 2020-12-21 Outpatient Nuha BEE [facility] [id number] Univers 11:30:00 11:30:00 FARHAN nafisa [facility] 2020-12-21 2020-12-21 Imm/Inj Nurse, Adc Pob Immunization [facility] [id number] Univers 11:19:01 11:19:20 Visit Farhan Bee [id number] [facility] [id number] Horacio lam PROFESSIO [phone] Me dical NAL [address] [place] [address] 2020-04-11 2020-04-11 Outpatient Nuha GIPSON [facility] [id number] Univers 15:40:00 15:40:[id number] [facility] 2020-04-11 2020-04-11 Outpatient Nuha GIPSON [facility] [id number] Univers 15:40:00 15:40:[address] [facility] 2020-03-14 2020-03-14 Outpatient Nuha GIPSON [facility] [id number] Univers 18:00:00 18:00:[address] [facility] 2020-03-14 2020-03-14 Outpatient Nuha GIPSON [facility] [id number] Univers 18:00:00 18:00:[id number] [facility] Results This patient has no known results.
[2022-04-01 17:40] LABS: SARS-COV-2 RT PCR NEGATIVE (NEGATIVE)
[2022-04-01 19:38] LABS: Hematocrit 37.1 % (36.0-45.0); Lymphocytes % 26.9 % (15.3-44.8); MCV 91.4 fL (80-100); MPV 8.5 fL (7.6-11.3); RBC Red Blood Cell Count 4.06 M/uL (3.86-4.86)
[2022-04-01 19:41] LABS: Protime INR 0.93
[2022-04-01 19:58] LABS: ALT/SGPT 65 U/L (13-56); AST/SGOT 39 U/L (15-37); Albumin 3.4 g/dL (3.4-5.0); Alkaline Phosphatase 90 U/L (45-117); BUN Blood Urea Nitrogen 8 mg/dL (7-18); Bicarbonate 29 mmol/L (21-32); Bilirubin Direct 0.1 mg/dL (0-0.2); Bilirubin Total 0.3 mg/dL (0.2-1.0); Glomerular Filtration Rate 74 ml/min (=/>90); Glucose Level 103 mg/dL (74-106); Lipase 248 U/L (73-393); Magnesium 2.2 mg/dL (1.6-2.4); NT PRO-BNP 22 pg/mL (<125); Potassium 3.8 mmol/L (3.5-5.1); Protein, Total 7.8 g/dL (6.4-8.2); Sodium Level 139 mmol/L (136-145); Troponin High Sensitivity < 3.0 pg/mL (<58.9)
[2022-04-01] MEDS ORDERED: NA CHLORIDE 0.9% 1,000 ML ONE (20:21)
[2022-04-01] MEDS ORDERED: CEFTRIAXONE 1000 MG/VIAL ONE (20:21)
[2022-04-01] MEDS ORDERED: FAMOTIDINE 20 MG/2 ML VIAL IV ONE (20:22)
--- NOTE | 2022-04-01 20:27 | RAD REPORT ---
[facility]29 pm CLINICAL HISTORY: COUGH COMPARISON: Chest Pa And Lat (2 Views) dated 04/22/2021 TECHNIQUE: Portable AP view of the chest. FINDINGS: Decreased inspiratory effort limits evaluation. The lungs are clear. No pneumothorax or ef fusion. The cardiomediastinal contours are unremarkable. IMPRESSION: No acute cardiopulmonary process.
--- NOTE | 2022-04-01 22:29 | EDPHYS ---
Physician Documentation [facility] Name: Consuelo Bliss Age: 66 yrs Sex: Female : 1955 Arrival Date: 04/01/2022 Time: 16:06 Bed 14 Private MD: [facility] ED Physician Gregorio Prieto HPI: 04/01 16:35 This 66 yrs old Female presents to ER via Ambulatory with complaints of Fever, cp Nasal Drainage, Cough. 16:35 The patient or guardian reports cough, that is intermittent. cp 16:35 Onset: The symptoms/episode began/occurred 2 week(s) ago. cp 16:35 Associated signs and symptoms: Pertinent positives: diarrhea, fever, sore throat, cp vomiting, cough. Severity of symptoms: in the emergency department the symptoms are unchanged despite home interventions. Historical: - Allergies: 16:27 Singulair; ld1 - Home Meds: 16:27 Xanax 1 mg Oral tab [Active]; pantoprazole 40 mg oral grps 1 packet 2 times per day ld1 [Active]; aspirin 81 mg Oral cap 1 cap once daily [Active]; - PMHx: 16:27 Anxiety; GERD; ld1 - PSHx: 16:27 None; ld1 - Immunization history:: Adult Immunizations up to date, Client reports receiving the 2nd dose of the Covid vaccine. - Social history:: Smoking status: Patient denies any tobacco usage or history of. Patient uses alcohol, occasionally. ROS: 16:40 Constitutional: Positive for fatigue, Negative for fever, poor PO intake. cp 16:40 Eyes: Negative for injury, pain, redness, and discharge. cp 16:40 ENT: Negative for drainage from ear(s), ear pain, sore throat, difficulty swallowing, difficulty handling secretions. 16:40 Cardiovascular: Positive for chest pain, with cough, Negative for edema, palpitations. 16:40 Respiratory: Positive for cough, "sounds productive", Negative for wheezing. 16:40 Abdomen/GI: Positive for nausea, vomiting, diarrhea, Negative for abdominal pain, constipation. 16:40 Back: Negative for radiated pain. 16:40 : Negative for urinary symptoms. 16:40 Neuro: Negative for altered mental status, numbness, syncope, weakness. 16:40 All other systems are negative. cp Exam: 16:45 Constitutional: The patient appears in no acute distress, alert, awake, cp non-diaphoretic, non-toxic, well developed, well nourished. 16:45 Head/Face: Normocephalic, atraumatic. cp 16:45 Eyes: Periorbital structures: appear normal, Pupils: equal, round, and reactive to light and accomodation, Conjunctiva: normal, no exudate, no injection, Sclera: no appreciated abnormality, Lids and lashes: appear normal, bilaterally. 16:45 ENT: External ear(s): are unremarkable, Ear canal(s): are normal, clear, TM's: dullness, bilaterally, Nose: is normal, Mouth: Lips: moist, Oral mucosa: moist, Posterior pharynx: Airway: no evidence of obstruction, patent, Tonsils: are normal in appearance, erythema, is not appreciated, exudate, is not appreciated. 16:45 Neck: ROM/movement: is normal, is supple, without pain, no range of motions limitations, no meningismus. 16:45 Chest/axilla: Inspection: normal. 16:45 Cardiovascular: Rate: normal, Rhythm: regular. 16:45 Respiratory: the patient does not display signs of respiratory distress, Respirations: normal, no use of accessory muscles, no retractions, labored breathing, is not present, Breath sounds: are clear throughout, no decreased breath sounds, no stridor, no wheezing. 16:45 Abdomen/GI: Inspection: abdomen appears normal, Bowel sounds: active, all quadrants, Palpation: abdomen is soft and non-tender, in all quadrants. 16:45 Back: pain, is absent, ROM is normal. 16:45 Skin: no rash present. 16:45 Neuro: Orientation: to person, place \\T\\ time. Mentation: is normal, Motor: moves all fours, strength is normal, Sensation: is normal. Vital Signs: 16:27 Pulse 68; Resp 18; Temp 97.6(O); Pulse Ox 96% on R/A; Weight 74.84 kg; Height 5 ft. 3 ld1 in. (160.02 cm); Pain 0/10; 16:27 BP 138 / 57; ld1 21:18 BP 164 / 62; Pulse 92; Resp 18; Pulse Ox 100% on R/A; kl 22:47 BP 162 / 71; Pulse 71; Resp 18; Pulse Ox 100% on R/A; kl 16:27 Body Mass Index 29.23 (74.84 kg, 160.02 cm) ld1 MDM: 16:26 Patient medically screened. [facility] 22:27 Data reviewed: vital signs, nurses notes, lab test result(s), EKG, radiologic studies, cp plain films. 22:27 Differential diagnosis: bronchitis, flu, URI, URI, bronchitis, pneumonia. Consideration cp of Admission/Observation Escalation of care including admission/observation considered. I considered the following discharge prescriptions or medication management in the emergency department Medications were administered in the Emergency Department. See MAR. Test considered but Not performed: CT: chest, abdomen/pelvis. Counseling: I had a detailed discussion with the patient and/or guardian regarding: the historical points, exam findings, and any diagnostic results supporting the discharge/admit diagnosis, lab results, radiology results, the need for outpatient follow up, a family practitioner, to return to the emergency department if symptoms worsen or persist or if there are any questions or concerns that arise at home. Response to treatment: the patient's symptoms have mildly improved after treatment, and as a result, I will discharge patient. 04/01 16:30 Order name: COVID-19/FLU A+B ld1 04/01 17:40 Order name: COVID-19/FLU A+B; Complete Time: 22:14 EDFL 04/01 22:15 Interpretation: Reviewed. cp 04/01 18:49 Order name: Basic Metabolic Panel [facility] 04/01 18:49 Order name: CBC with Diff [facility] 04/01 18:49 Order name: LFT's [facility] 04/01 18:49 Order name: Magnesium [facility] 04/01 18:49 Order name: NT PRO-BNP [facility] 04/01 18:49 Order name: PT-INR [facility] 04/01 18:49 Order name: Troponin HS [facility] 04/01 18:49 Order name: Lipase [facility] 04/01 18:49 Order name: Blood Culture Adult (2) [facility] 04/01 18:49 Order name: Lactate w/ 2H reflex if indic. [facility] 04/01 18:49 Order name: Fecal Leukocyte Stain [facility] 04/01 18:49 Order name: Stool Culture [facility] 04/01 18:49 Order name: XRAY Chest (1 view) [facility] 04/01 18:49 Order name: EKG; Complete Time: 18:50 [facility] 04/01 19:39 Order name: CBC with Automated Diff; Complete Time: 22:14 EDMS 04/01 22:16 Interpretation: Reviewed. 04/01 19:41 Order name: Protime (+INR); Complete Time: 22:14 EDMS 04/01 19:59 Order name: Basic Metabolic Panel; Complete Time: 22:14 EDMS 04/01 22:14 Interpretation: Normal except: GFR 74. 04/01 19:59 Order name: Liver (Hepatic) Function; Complete Time: 22:14 EDMS 04/01 22:14 Interpretation: Normal except: AST 39; ALT 65; GLOB 4.4; A/G 0.8. 04/01 19:59 Order name: Troponin High Sensitivity; Complete Time: 22:14 EDMS 04/01 22:16 Interpretation: Reviewed. 04/01 19:59 Order name: NT PRO-BNP; Complete Time: 22:14 EDMS 04/01 19:59 Order name: Magnesium; Complete Time: 22:14 EDMS 04/01 19:59 Order name: Lipase; Complete Time: 22:14 EDMS 04/01 20:27 Order name: RAD; Complete Time: 22:14 EDMS 04/01 22:17 Interpretation: Report reviewed. 04/01 20:58 Order name: Lactate w/ 2H reflex if indic.; Complete Time: 22:14 EDMS 04/01 22:17 Interpretation: LAC 1.2; Reviewed. 04/01 18:49 Order name: Cardiac monitoring [facility] 04/01 18:49 Order name: EKG - Nurse/Tech; Complete Time: 19:32 [facility] 04/01 18:49 Order name: IV Saline Lock; Complete Time: 19:32 [facility] 04/01 18:49 Order name: Labs collected and sent; Complete Time: 19:32 [facility] 04/01 18:49 Order name: O2 Per Protocol [facility] 04/01 18:49 Order name: O2 Sat Monitoring [facility] 04/01 22:17 Order name: PO challenge; Complete Time: 22:30 cp Administered Medications: 20:24 Drug: Rocephin (cefTRIAXone) 1 grams Route: IV; Rate: per protocol; Site: left kl antecubital; 20:24 Drug: Pepcid (famotidine) 20 mg Route: IVP; Site: left antecubital; kl 20:25 Drug: NS 0.9% 1000 ml Route: IV; Rate: 1 bolus; Site: left antecubital; kl 22:28 Drug: Tussionex Pennkinetic ER (chlorpheniramine-hydrocodone) Suspension 5 ml Route: PO;kl 22:47 Follow up: Response: No adverse reaction kl Disposition Summary: 04/01/22 22:28 Discharge Ordered Location: Home cp Problem: new cp Symptoms: have improved cp Condition: Stable cp Diagnosis - Cough cp Followup: cp - With: Private Physician - When: 2 - 3 days - Reason: Worsening of condition Discharge Instructions: - Discharge Summary Sheet cp - Cough, Adult cp Forms: - Medication Reconciliation Form cp - Thank You Letter cp - Antibiotic Education cp - Prescription Opioid Use cp Prescriptions: - Tessalon Perles 100 mg Oral Capsule - take 2 capsule by ORAL route every 8 hours As needed; 30 capsule; Refills: 0, cp Product Selection Permitted - Zithromax Z-Itz 250 mg Oral Tablet - take 1 tablet by ORAL route as directed for 5 days Day 1 - take two (2) tablets cp one time. Day 2, 3, 4 , 5 take one (1) tablet once daily.; 6 tablet; Refills: 0, Product Selection Permitted Signatures: Dispatcher [employer] EDAngelina Freeman RN RN kl Anderson, Corey, MD MD cha Page, Corey, PA PA cp Christine Carter RN RN ld1 Corrections: (The following items were deleted from the chart) 04/02 20:04/01 16:40 Constitutional: Negative for fever, poor PO intake, cp cp 04/02 20:04/01 16:40 Abdomen/GI: Negative for abdominal pain, vomiting, diarrhea, constipation, cp cp 04/02 20:04/01 16:40 Neuro: Positive for weakness, Negative for altered mental status, numbness, cp syncope, cp
--- NOTE | 2022-04-01 22:29 | ER ---
Nurse's Notes [facility] Name: Consuelo Bliss Age: 66 yrs Sex: Female : 1955 Arrival Date: 04/01/2022 Time: 16:06 Bed 14 Private MD: Manolo Quiñonez Diagnosis: Cough Presentation: 04/01 16:26 Chief complaint: Patient states: Fever, fatigue, cough, nausea, vomiting, diarrhea for ld1 1-2 weeks. Coronavirus screen: Client presents with at least one sign or symptom that may indicate coronavirus-19. Standard/surgical mask placed on the client. Ebola Screen: No symptoms or risks identified at this time. Risk Assessment: Do you want to hurt yourself or someone else? Patient reports no desire to harm self or others. Onset of symptoms was April 01, 2022. 16:26 Method Of Arrival: Ambulatory ld1 16:26 Acuity: ARMAND 3 ld1 16:27 Initial Sepsis Screen: Does the patient meet any 2 criteria? No. Patient's initial ld1 sepsis screen is negative. Does the patient have a suspected source of infection? No. Patient's initial sepsis screen is negative. Triage Assessment: 16:27 General: Appears in no apparent distress. comfortable, Behavior is calm, cooperative, ld1 appropriate for age. Pain: Denies pain. EENT: No signs and/or symptoms were reported regarding the EENT system. Neuro: Level of Consciousness is awake, alert, obeys commands, Oriented to person, place, time, situation. Cardiovascular: Capillary refill < 3 seconds Patient's skin is warm and dry. Respiratory: Airway is patent Respiratory effort is even, unlabored. GI: Abdomen is round non-distended, Reports diarrhea, nausea, vomiting. : No signs and/or symptoms were reported regarding the genitourinary system. Derm: No signs and/or symptoms reported regarding the dermatologic system. Musculoskeletal: No signs and/or symptoms reported regarding the musculoskeletal system. Historical: - Allergies: 16:27 Singulair; ld1 - Home Meds: 16:27 Xanax 1 mg Oral tab [Active]; pantoprazole 40 mg oral grps 1 packet 2 times per day ld1 [Active]; aspirin 81 mg Oral cap 1 cap once daily [Active]; - PMHx: 16:27 Anxiety; GERD; ld1 - PSHx: 16:27 None; ld1 - Immunization history:: Adult Immunizations up to date, Client reports receiving the 2nd dose of the Covid vaccine. - Social history:: Smoking status: Patient denies any tobacco usage or history of. Patient uses alcohol, occasionally. Screenin:26 [facility] ED Fall Risk Assessment (Adult) History of falling in the last 3 months, kl including since admission No falls in past 3 months (0 pts) Confusion or Disorientation No (0 pts) Intoxicated or Sedated No (0 pts) Impaired Gait No (0 pts) Mobility Assist Device Used No (0 pt) Altered Elimination No (0 pt) Score/Fall Risk Level 0 - 2 = Low Risk Oriented to surroundings, Maintained a safe environment. Abuse screen: Denies threats or abuse. Nutritional screening: No deficits noted. Tuberculosis screening: No symptoms or risk factors identified. Assessment: 20:25 General: Appears uncomfortable, well groomed, well developed, Behavior is calm, kl cooperative. Pain: Complains of pain in abdomen. Neuro: No deficits noted. Cardiovascular: No deficits noted. Respiratory: No deficits noted. GI: Reports upper abdominal pain. : No deficits noted. No signs and/or symptoms were reported regarding the genitourinary system. EENT: No deficits noted. No signs and/or symptoms were reported regarding the EENT system. 21:32 Reassessment: Patient appears in no apparent distress at this time. Patient and/or kl family updated on plan of care and expected duration. Pain level reassessed. Patient is alert, oriented x 3, equal unlabored respirations, skin warm/dry/pink. 22:23 Pain: Complains of pain in generalized body aches. kl 22:47 Reassessment: Patient appears in no apparent distress at this time. Patient and/or kl family updated on plan of care and expected duration. Pain level reassessed. Patient is alert, oriented x 3, equal unlabored respirations, skin warm/dry/pink. Patient states feeling better. Patient states symptoms have improved. Vital Signs: 16:27 Pulse 68; Resp 18; Temp 97.6(O); Pulse Ox 96% on R/A; Weight 74.84 kg; Height 5 ft. 3 ld1 in. (160.02 cm); Pain 0/10; 16:27 BP 138 / 57; ld1 21:18 BP 164 / 62; Pulse 92; Resp 18; Pulse Ox 100% on R/A; kl 22:47 BP 162 / 71; Pulse 71; Resp 18; Pulse Ox 100% on R/A; kl 16:27 Body Mass Index 29.23 (74.84 kg, 160.02 cm) ld1 ED Course: 16:06 Patient arrived in ED. am2 16:06 Manolo Quiñonez DO is Private Physician. am2 16:26 Gregorio Prieto MD is Attending Physician. brennon 16:27 Triage completed. ld1 16:27 Arm band placed on right wrist. ld1 16:30 COVID-19/FLU A+B Sent. ld1 19:31 Lactate w/ 2H reflex if indic. Sent. bc6 19:32 Blood Culture Adult (2) Sent. bc6 19:32 Lipase Sent. bc6 19:32 Basic Metabolic Panel Sent. bc6 19:32 CBC with Diff Sent. bc6 19:32 LFT's Sent. bc6 19:32 Magnesium Sent. bc6 19:32 NT PRO-BNP Sent. bc6 19:32 PT-INR Sent. bc6 19:32 Troponin HS Sent. bc6 19:32 Inserted saline lock: 20 gauge in left antecubital area, using aseptic technique. bc6 19:44 Gregorio Glynn PA is PHCP. cp 22:48 No provider procedures requiring assistance completed. IV discontinued, intact, kl bleeding controlled, No redness/swelling at site. Pressure dressing applied. 22:49 Patient has correct armband on for positive identification. kl Administered Medications: 20:24 Drug: Rocephin (cefTRIAXone) 1 grams Route: IV; Rate: per protocol; Site: left kl antecubital; 20:24 Drug: Pepcid (famotidine) 20 mg Route: IVP; Site: left antecubital; kl 20:25 Drug: NS 0.9% 1000 ml Route: IV; Rate: 1 bolus; Site: left antecubital; kl 22:28 Drug: Tussionex Pennkinetic ER (chlorpheniramine-hydrocodone) Suspension 5 ml Route: PO;kl 22:47 Follow up: Response: No adverse reaction kl Medication: 22:49 VIS not applicable for this client. kl Outcome: 22:28 Discharge ordered by . cp 22:48 Discharged to home ambulatory, with family. jeb 22:48 Condition: improved 22:48 Discharge instructions given to patient, Instructed on discharge instructions, follow up and referral plans. medication usage, Demonstrated understanding of instructions, follow-up care, medications, Prescriptions given X 2. 22:49 Patient left the ED. Signatures: Angelina Mendenhall, RN RN Gregorio Ortiz MD MD cha Page, Corey, PA PA Pastora Ha am2 Christine Carter RN RN ld1 Chasity Lema 6
[2022-04-01] MEDS ORDERED: HYDROCODONE/CHLORPHEN 5 ML/OSYR ONE (22:37)
[2022-04-01 23:08] VITALS: TEMP 97.6
[2022-04-01 23:20] VITALS: BP 162/71; O2SAT 100
--- NOTE | 2022-04-02 15:22 | EKG ---
Test Date: 2022-04-01 Test Time: 19:06:13 [employer]: [employer]STRO MEASUREMENT RESULTS: Intervals: Rate: 64 VT: 142 QRSD: 76 QT: 420 QTc: 433 [place]: P: 69 VT: 142 QRS: 54 T: 65 INTERPRETIVE STATEMENTS: Normal sinus rhythm Normal ECG No previous ECG available for comparison Electronically Signed On 04-02-22 15:19:38 MANAGER [employer] by Agusto Dan
== END 2022-04-01 22:49 | disposition home or self-care (01) ==
LOC: ER 16:01
DX: R05.9 Cough, unspecified (principal); R11.2 Nausea with vomiting, unspecified; R19.7 Diarrhea, unspecified; F41.9 Anxiety disorder, unspecified; Z88.8 Allergy status to other drugs, medicaments and biological substances; Z20.822 Contact with and (suspected) exposure to COVID-19; Z79.82 Long term (current) use of aspirin
CPT/HCPCS: 93005; 87040 ×2; 85025; 80048; 36415; 83735; 85610; 80076; 83605; 84484; 83690; 83880; 0240U; 71045; 96375; 96374; 99284; J7030

== ENCOUNTER 2023-04-30 21:36 | Inpatient (IN) | payer OTHER ==
--- OUTSIDE RECORDS SUMMARY | 2023-04-30 21:40 | XMS REPORT | Continuity of Care Document ---
Author Name Unknown Address [address] [facility] [address] [place] [address] [facility] thconnect Address [address] [facility] [facility] [address] [place] [address] Care Team Providers Care Junior Analyst Name Role Phone VITALIY KENNY COLE Primary Care Physician Manolo Tobin Attending Clinician Unavailable JAVIER MALLORY Attending Clinician Unavailable Doctor Unassigned, [place] Attending Clinician KIA Samuels Attending Clinician Unava ilable REUBEN PIEDRA Attending Clinician Unavail able Nurse, Adc Pob Immunization Attending Clinician Unavailable Reuben Piedra DO Attending Clinician OTIS GIPSON Attending Clinician Unavailable Payers Payer Name Policy Type Policy Number Effective Date Expirati on Date Source [facility] Dual Complete Choice (Regional PPO D-SNP) 53 [id number] [facility] MEDICAID 2 [id number] [facility] ALLIED BENEFIT [id number] 2014 00:00:00 Problems Condition Name Condition Details Condition Category Status Onset Date Resolution Date Last Treatment Date Treating Clinician Comments Source Anxiety Anxiety Disease Active [facility] Insomnia Insomnia Disease Active Unive rs [facility] Depression Depression Disease Active U nivers [facility] Arthritis Arthritis Disease Active Uni [facility] HLD (hyperlipi demia) HLD (hyperlipi demia) Disease Active [facility] Anemia Anemia Disease Active Overview: Formattin g of this note might be different from the original. in the past [facility] [id number] Generalize d anxiety disorder Problem [facility] [id number] Moderate major depression , single episode Problem [facility] [id number] EMILY (obstructi ve sleep apnea) Problem [facility] [id number] Body mass index [BMI] 32.0-32.9, adult Problem [facility] [id number] Other obesity due to excess calories Problem [facility] [id number] Tobacco use disorder Problem [facility] [id number] Panic disorder [episodic paroxysmal anxiety] Problem [facility] [id number] Other chronic pain Problem [facility] [id number] Acute pain of right shoulder Problem [facility] [id number] Pain, joint, shoulder, right Problem [facility] [id number] Nontraumat ic incomplete tear of right rotator cuff Problem [facility] [id number] Primary insomnia Problem [facility] [id number] Benzodiaze pine dependence Problem [facility] [id number] Non-season al allergic rhinitis, unspecifie d trigger Problem [facility] [id number] GERD without esophagiti s Problem [facility] Allergies, Adverse Reactions, Alerts Allergy Name Allergy Type Status Severity Reaction(s) Onset Date Inactive Date Treating Clinician Comments Source CODEINE DRUG INGREDI Active N/V 2015-02 00:00: 00 [facility] Codeine Propensi ty to adverse reaction s Active Nausea and/or Vomiting 2015-02 00:00: 00 [facility] Social History Social Habit Start Date Stop Date Quantity Comments Source History SDOH Alcohol Frequency [facility] History SDOH Alcohol Std Drinks [facility] History SDOH Alcohol Binge [facility] Use [facility] Sex Assigned [facility] Alcohol intake 2021-08-20 00:00:00 2021-08-20 00:00:00 0 /d [facility] History of Social function 2021-08-20 00:00:00 2021-08-20 00:00:00 [facility] Cigarettes smoked current (pack per day) - Reported 2015-08-08 00:00:00 2015-08-08 00:00:00 [facility] Cigarette pack-years 2015-08-08 00:00:00 2015-08-08 00:00:00 [facility] Alcohol Comment 2015-08-08 00:00:00 2015-08-08 00:00:00 social occasional sometimes [facility] Tobacco Comment 2015-08-08 00:00:00 2015-08-08 00:00:00 wants to stop on her own [facility] Smoking Status Start Date Stop Date Source Former Smoker 2022-08-28 00:00:00 2022-08-28 00:00:00 [facility] Occasional tobacco smoker 2015-08-08 00:00:00 [facility] Medications Ordered Medication Name Filled Medication Name Start Date Stop Date Current Medication? Ordering Clinician Indication Dosage Frequency Signature (SIG) Comments Components Source Meloxicam 7.5 MG Meloxicam 7.5 MG 2022-14 00:00: 00 No 1{table t} QD Meloxicam 7.5 MG Meloxicam 7.5 MG Meloxicam 7.5 MG 2022-0 14 00:00: 00 No 1{table t} QD Meloxicam 7.5 MG Meloxicam 7.5 MG Meloxicam 7.5 MG 3-0 14 00:00: 00 No 1{table t} QD Meloxicam 7.5 MG Meloxicam 7.5 MG Meloxicam 7.5 MG 2022-0 14 00:00: 00 No 1{table t} QD Meloxicam 7.5 MG Meloxicam 7.5 MG Meloxicam 7.5 MG 3-0 14 00:00: 00 No 1{table t} QD Meloxicam 7.5 MG Meloxicam 7.5 MG Meloxicam 7.5 MG 3-0 6-14 00:00: 00 No 1{table t} QD Meloxicam 7.5 MG Meloxicam 7.5 MG Meloxicam 7.5 MG 3-0 14 00:00: 00 No 1{table t} QD Meloxicam 7.5 MG Meloxicam 7.5 MG Meloxicam 7.5 MG 3-0 14 00:00: 00 No 1{table t} QD Meloxicam 7.5 MG Meloxicam 7.5 MG Meloxicam 7.5 MG 3-0 14 00:00: 00 No 1{table t} QD Meloxicam 7.5 MG Meloxicam 7.5 MG Meloxicam 7.5 MG 3-0 14 00:00: 00 No 1{table t} QD Meloxicam 7.5 MG Meloxicam 7.5 MG Meloxicam 7.5 MG 3-0 14 00:00: 00 No 1{table t} QD Meloxicam 7.5 MG Meloxicam 7.5 MG Meloxicam 7.5 MG 3-0 14 00:00: 00 No 1{table t} QD Meloxicam 7.5 MG Bupivicaine Tennyson Bupivicaine Tennyson 2022-0 05-01 00:00: 00 No 5mL [facility] Kenalog (Triamcinol one) Kenalog (Triamcinol one) 2022-0 05-01 00:00: 00 No 2mL [facility] Meloxicam 7.5 MG Meloxicam 7.5 MG 3-0 05-01 00:00: 00 No 1{table t} QD Meloxicam 7.5 MG Bupivicaine Tennyson Bupivicaine Tennyson 2022-0 05-01 00:00: 00 No 5mL [facility] Kenalog (Triamcinol one) Kenalog (Triamcinol one) 05-01 00:00: 00 No 2mL Common [facility] Meloxicam 7.5 MG Meloxicam 7.5 MG 05-01 00:00: 00 No 1{table t} QD Meloxicam 7.5 MG Bupivicaine Tennyson Bupivicaine Tennyson 05-01 00:00: 00 No 5mL Common [facility] Kenalog (Triamcinol one) Kenalog (Triamcinol one) 05-01 00:00: 00 No 2mL [facility] Meloxicam 7.5 MG Meloxicam 7.5 MG 05-01 00:00: 00 No 1{table t} QD Meloxicam 7.5 MG Bupivicaine Tennyson Bupivicaine Tennyson 05-01 00:00: 00 No 5mL [facility] Kenalog (Triamcinol one) Kenalog (Triamcinol one) 05-01 00:00: 00 No 2mL [facility] Meloxicam 7.5 MG Meloxicam 7.5 MG 05-01 00:00: 00 No 1{table t} QD Meloxicam 7.5 MG Bupivicaine Tennyson Bupivicaine Tennyson 05-01 00:00: 00 No 5mL [facility] Kenalog (Triamcinol one) Kenalog (Triamcinol one) 05-01 00:00: 00 No 2mL [facility] Meloxicam 7.5 MG Meloxicam 7.5 MG 05-01 00:00: 00 No 1{table t} QD Meloxicam 7.5 MG Bupivicaine Tennyson Bupivicaine Tennyson 05-01 00:00: 00 No 5mL [facility] Kenalog (Triamcinol one) Kenalog (Triamcinol one) 05-01 00:00: 00 No 2mL [facility] Meloxicam 7.5 MG Meloxicam 7.5 MG 05-01 00:00: 00 No 1{table t} QD Meloxicam 7.5 MG Bupivicaine Tennyson Bupivicaine Tennyson 05-01 00:00: 00 No 5mL [facility] Kenalog (Triamcinol one) Kenalog (Triamcinol one) 05-01 00:00: 00 No 2mL [facility] Meloxicam 7.5 MG Meloxicam 7.5 MG 05-01 00:00: 00 No 1{table t} QD Meloxicam 7.5 MG Bupivicaine Tennyson Bupivicaine Tennyson 05-01 00:00: 00 No 5mL [facility] Kenalog (Triamcinol one) Kenalog (Triamcinol one) 05-01 00:00: 00 No 2mL [facility] Meloxicam 7.5 MG Meloxicam 7.5 MG 05-01 00:00: 00 No 1{table t} QD Meloxicam 7.5 MG Bupivicaine Tennyson Bupivicaine Tennyson 05-01 00:00: 00 No 5mL [facility] Kenalog (Triamcinol one) Kenalog (Triamcinol one) 05-01 00:00: 00 No 2mL [facility] Meloxicam 7.5 MG Meloxicam 7.5 MG 05-01 00:00: 00 No 1{table t} QD Meloxicam 7.5 MG Bupivicaine Tennyson Bupivicaine Tennyson 05-01 00:00: 00 No 5mL [facility] Kenalog (Triamcinol one) Kenalog (Triamcinol one) 05-01 00:00: 00 No 2mL [facility] Meloxicam 7.5 MG Meloxicam 7.5 MG 05-01 00:00: 00 No 1{table t} QD Meloxicam 7.5 MG Bupivicaine Tennyson Bupivicaine Tennyson 2022-0 05-01 00:00: 00 No 5mL [facility] Kenalog (Triamcinol one) Kenalog (Triamcinol one) 0 05-01 00:00: 00 No 2mL [facility] Meloxicam 7.5 MG Meloxicam 7.5 MG 2022-0 05-01 00:00: 00 No 1{table t} QD Meloxicam 7.5 MG Bupivicaine Tennyson Bupivicaine Tennyson 0 05-01 00:00: 00 No 5mL [facility] Kenalog (Triamcinol one) Kenalog (Triamcinol one) 0 05-01 00:00: 00 No 2mL [facility] Meloxicam 7.5 MG Meloxicam 7.5 MG 2022-0 05-01 00:00: 00 No 1{table t} QD Meloxicam 7.5 MG Meloxicam 7.5 MG Meloxicam 7.5 MG 2022-0 04-03 00:00: 00 No 1{table t} QD Meloxicam 7.5 MG Meloxicam 7.5 MG Meloxicam 7.5 MG 2022-0 04-03 00:00: 00 No 1{table t} QD Meloxicam 7.5 MG Meloxicam 7.5 MG Meloxicam 7.5 MG 3-0 2 00:00: 00 No 1{table t} QD Meloxicam 7.5 MG Meloxicam 7.5 MG Meloxicam 7.5 MG 3-0 2 00:00: 00 No 1{table t} QD Meloxicam 7.5 MG Meloxicam 7.5 MG Meloxicam 7.5 MG 3-0 2 00:00: 00 No 1{table t} QD Meloxicam 7.5 MG Meloxicam 7.5 MG Meloxicam 7.5 MG 3-0 2 00:00: 00 No 1{table t} QD Meloxicam 7.5 MG Meloxicam 7.5 MG Meloxicam 7.5 MG 3-0 2 00:00: 00 No 1{table t} QD Meloxicam 7.5 MG Meloxicam 7.5 MG Meloxicam 7.5 MG 3-0 2 00:00: 00 No 1{table t} QD Meloxicam 7.5 MG Meloxicam 7.5 MG Meloxicam 7.5 MG 3-0 2 00:00: 00 No 1{table t} QD Meloxicam 7.5 MG Meloxicam 7.5 MG Meloxicam 7.5 MG 3-0 2 00:00: 00 No 1{table t} QD Meloxicam 7.5 MG Meloxicam 7.5 MG Meloxicam 7.5 MG 3-0 2 00:00: 00 No 1{table t} QD Meloxicam 7.5 MG Meloxicam 7.5 MG Meloxicam 7.5 MG 3-0 2 00:00: 00 No 1{table t} QD Meloxicam 7.5 MG buPROPion HCl ER (SR) 150 MG buPROPion HCl ER (SR) 150 MG 2022-0 2 00:00: 00 No 1{table t_in_th e_morni ng} QD buPROPion HCl ER (SR) 150 MG buPROPion HCl ER (SR) 150 MG buPROPion HCl ER (SR) 150 MG 2022-0 2 00:00: 00 No 1{table t_in_th e_morni ng} QD buPROPion HCl ER (SR) 150 MG aspirin 81 mg chewable tablet 04-18 12:04: 02 Yes 81mg Take 81 mg by mouth daily. [facility] aspirin 81 mg chewable tablet 04-18 12:04: 02 Yes 81mg Take 81 mg by mouth daily. [facility] aspirin 81 mg chewable tablet 04-18 12:04: 02 Yes 81mg Take 81 mg by mouth daily. [facility] acetaminoph en-codeine 300-30 mg tablet 04-18 00:00: 00 Yes [id number] 1/2 - 1 tab Every 4hrs as needed for pain or cough requiring narcotic [facility] acetaminoph en-codeine 300-30 mg tablet 04-18 00:00: 00 Yes 1/2 - 1 tab Every 4hrs as needed for pain or cough [facility]otic [facility]-30 mg tablet 04-18 00:00: 00 Yes [id number] 1/2 - 1 tab Every 4hrs as needed for pain or cough requiring narcotic [facility] acetaminoph en-codeine 300-30 mg tablet 04-18 00:00: 00 Yes 1/2 - 1 tab Every 4hrs as needed for pain or cough requiring narcotic [facility] acetaminoph en-codeine 300-30 mg tablet 04-18 00:00: 00 Yes [id number] 1/2 - 1 tab Every 4hrs as needed for pain or cough requiring narcotic [facility] acetaminoph en-codeine 300-30 mg tablet 04-18 00:00: 00 Yes 1/2 - 1 tab Every 4hrs as needed for pain or cough requiring narcotic [facility] traMADOL (ULTRAM) 50 mg tablet 2015-02 00:00: 00 Yes 50mg Take 1 tablet by mouth every 6 (six) hours as needed for Pain (scale 7-10). [facility] methocarbam ol (ROBAXIN) 500 mg tablet 2015-02 00:00: 00 Yes 500mg Take 1 tablet by mouth 4 (four) times daily. [facility] traMADOL (ULTRAM) 50 mg tablet 2015-02 00:00: 00 Yes 50mg Take 1 tablet by mouth every 6 (six) hours as needed for Pain (scale 7-10). [facility] methocarbam ol (ROBAXIN) 500 mg tablet 2015-02 00:00: 00 Yes 500mg Take 1 tablet by mouth 4 (four) times daily. [facility] tra[facility] (ULTRAM) 50 mg tablet 2015-02 00:00: 00 Yes 50mg Take 1 tablet by mouth every 6 (six) hours as needed for Pain (scale 7-10). [facility] methocarbam ol (ROBAXIN) 500 mg tablet 2015-02 00:00: 00 Yes 500mg Take 1 tablet by mouth 4 (four) times daily. [facility] pravastatin (PRAVACHOL) 40 mg tablet 08-16 00:00: 00 Yes 40mg Take 1 tablet by mouth at bedtime. [facility] pravastatin (PRAVACHOL) 40 mg tablet 08-16 00:00: 00 Yes 40mg Take 1 tablet by mouth at bedtime. [facility] pravastatin (PRAVACHOL) 40 mg tablet 08-16 00:00: 00 Yes 40mg Take 1 tablet by mouth at bedtime. [facility] mirtazapine (REMERON) 15 mg tablet 08-07 00:00: 00 Yes 15mg Take 1 tablet by mouth at bedtime. [facility] hydrOXYzine (ATARAX) 25 mg tablet 08-07 00:00: 00 Yes 25mg Take 1 tablet by mouth at bedtime. [facility] mirtazapine (REMERON) 15 mg tablet 08-07 00:00: 00 Yes 15mg Take 1 tablet by mouth at bedtime. [facility] hydrOXYzine (ATARAX) 25 mg tablet 08-07 00:00: 00 Yes 25mg Take 1 tablet by mouth at bedtime. [facility] mirtazapine (REMERON) 15 mg tablet 08-07 00:00: 00 Yes 15mg Take 1 tablet by mouth at bedtime. [facility] hydrOXYzine (ATARAX) 25 mg tablet 08-07 00:00: 00 Yes 25mg Take 1 tablet by mouth at bedtime. [facility] Pantoprazol e Sodium 40 MG Pantoprazol e Sodium 40 MG No Pantoprazo le Sodium 40 MG Pantoprazol e Sodium 40 MG Pantoprazol e Sodium 40 MG No 1{table t} QD Pantoprazo le Sodium 40 MG [facility] Silver 50+Women Cent[facility] Silver 50+Women No [facility] Silver 50+Women ALPRAZolam 1 MG ALPRAZolam 1 MG No 1{table t} BID ALPRAZolam 1 MG traZODone HCl 100 MG traZODone HCl 100 MG No traZODone HCl 100 MG buPROPion HCl ER (SR) 150 MG buPROPion HCl ER (SR) 150 MG No 1{table t_in e_morni ng} QD buPROPion HCl ER (SR) 150 MG buPROPion HCl ER (SR) 150 MG buPROPion HCl ER (SR) 150 MG No buPROPion HCl ER (SR) 150 MG Pantoprazol e Sodium 40 MG Pantoprazol e Sodium 40 MG No Pantoprazo le Sodium 40 MG Pantoprazol e Sodium 40 MG Pantoprazol e Sodium 40 MG No 1{table t} QD Pantoprazo le Sodium 40 MG [facility] 50+Women [facility] Silver 50+Women No [facility] Silver 50+Women ALPRAZolam 1 MG ALPRAZolam 1 MG No 1{table t} BID ALPRAZolam 1 MG traZODone HCl 100 MG traZODone HCl 100 MG No traZODone HCl 100 MG buPROPion HCl ER (SR) 150 MG buPROPion HCl ER (SR) 150 MG No 1{table t_in e_morni ng} QD buPROPion HCl ER (SR) 150 MG buPROPion HCl ER (SR) 150 MG buPROPion HCl ER (SR) 150 MG No buPROPion HCl ER (SR) 150 MG Pantoprazol e Sodium 40 MG Pantoprazol e Sodium 40 MG No Pantoprazo le Sodium 40 MG Pantoprazol e Sodium 40 MG Pantoprazol e Sodium 40 MG No 1{table t} QD Pantoprazo le Sodium 40 MG [facility] 50+Women [facility] Silver 50+Women No [facility] Silver 50+Women ALPRAZolam 1 MG ALPRAZolam 1 MG No 1{table t} BID ALPRAZolam 1 MG traZODone HCl 100 MG traZODone HCl 100 MG No traZODone HCl 100 MG buPROPion HCl ER (SR) 150 MG buPROPion HCl ER (SR) 150 MG No 1{table t_in e_morni ng} QD buPROPion HCl ER (SR) 150 MG buPROPion HCl ER (SR) 150 MG buPROPion HCl ER (SR) 150 MG No buPROPion HCl ER (SR) 150 MG Pantoprazol e Sodium 40 MG Pantoprazol e Sodium 40 MG No Pantoprazo le Sodium 40 MG Pantoprazol e Sodium 40 MG Pantoprazol e Sodium 40 MG No 1{table t} QD Pantoprazo le Sodium 40 MG [facility] 50+Women [facility] Silver 50+Women No [facility] Silver 50+Women ALPRAZolam 1 MG ALPRAZolam 1 MG No 1{table t} BID ALPRAZolam 1 MG traZODone HCl 100 MG traZODone HCl 100 MG No traZODone HCl 100 MG buPROPion HCl ER (SR) 150 MG buPROPion HCl ER (SR) 150 MG No 1{table t_in e_morni ng} QD buPROPion HCl ER (SR) 150 MG buPROPion HCl ER (SR) 150 MG buPROPion HCl ER (SR) 150 MG No buPROPion HCl ER (SR) 150 MG Pantoprazol e Sodium 40 MG Pantoprazol e Sodium 40 MG No Pantoprazo le Sodium 40 MG Pantoprazol e Sodium 40 MG Pantoprazol e Sodium 40 MG No 1{table t} QD Pantoprazo le Sodium 40 MG [facility] 50[facility]Women [facility] 50+Women No [facility] 50+Women ALPRAZolam 1 MG ALPRAZolam 1 MG No 1{table t} BID ALPRAZolam 1 MG traZODone HCl 100 MG traZODone HCl 100 MG No traZODone HCl 100 MG buPROPion HCl ER (SR) 150 MG buPROPion HCl ER (SR) 150 MG No 1{table t_in e_morni ng} QD buPROPion HCl ER (SR) 150 MG buPROPion HCl ER (SR) 150 MG buPROPion HCl ER (SR) 150 MG No buPROPion HCl ER (SR) 150 MG Pantoprazol e Sodium 40 MG Pantoprazol e Sodium 40 MG No Pantoprazo le Sodium 40 MG Pantoprazol e Sodium 40 MG Pantoprazol e Sodium 40 MG No 1{table t} QD Pantoprazo le Sodium 40 MG [facility] 50[facility]Women [facility] 50+Women No [facility] 50+Women ALPRAZolam 1 MG ALPRAZolam 1 MG No 1{table t} BID ALPRAZolam 1 MG traZODone HCl 100 MG traZODone HCl 100 MG No traZODone HCl 100 MG buPROPion HCl ER (SR) 150 MG buPROPion HCl ER (SR) 150 MG No 1{table t_in e_morni ng} QD buPROPion HCl ER (SR) 150 MG buPROPion HCl ER (SR) 150 MG buPROPion HCl ER (SR) 150 MG No buPROPion HCl ER (SR) 150 MG Pantoprazol e Sodium 40 MG Pantoprazol e Sodium 40 MG No Pantoprazo le Sodium 40 MG Pantoprazol e Sodium 40 MG Pantoprazol e Sodium 40 MG No 1{table t} QD Pantoprazo le Sodium 40 MG [facility] 50+Women [facility] 50+Women No [facility] 50+Women ALPRAZolam 1 MG ALPRAZolam 1 MG No 1{table t} BID ALPRAZolam 1 MG Pantoprazol e Sodium 40 MG Pantoprazol e Sodium 40 MG No 1{table t} QD Pantoprazo le Sodium 40 MG traZODone HCl 100 MG traZODone HCl 100 MG No traZODone HCl 100 MG buPROPion HCl ER (SR) 150 MG buPROPion HCl ER (SR) 150 MG No 1{table t_in e_morni ng} QD buPROPion HCl ER (SR) 150 MG buPROPion HCl ER (SR) 150 MG buPROPion HCl ER (SR) 150 MG No buPROPion HCl ER (SR) 150 MG Pantoprazol e Sodium 40 MG Pantoprazol e Sodium 40 MG No Pantoprazo le Sodium 40 MG ALPRAZolam 1 MG ALPRAZolam 1 MG No 1{table t} BID ALPRAZolam 1 MG Pantoprazol e Sodium 40 MG Pantoprazol e Sodium 40 MG No 1{table t} QD Pantoprazo le Sodium 40 MG [facility] 50[facility]Women [facility] 50+Women No [facility] 50+Women ALPRAZolam 1 MG ALPRAZolam 1 MG No 1{table t} BID ALPRAZolam 1 MG traZODone HCl 100 MG traZODone HCl 100 MG No traZODone HCl 100 MG buPROPion HCl ER (SR) 150 MG buPROPion HCl ER (SR) 150 MG No 1{table t_in e_morni ng} QD buPROPion HCl ER (SR) 150 MG buPROPion HCl ER (SR) 150 MG buPROPion HCl ER (SR) 150 MG No buPROPion HCl ER (SR) 150 MG Pantoprazol e Sodium 40 MG Pantoprazol e Sodium 40 MG No Pantoprazo le Sodium 40 MG [facility] 50+Women [facility] 50+Women No [facility] 50+Women Pantoprazol e Sodium 40 MG Pantoprazol e Sodium 40 MG No 1{table t} QD Pantoprazo le Sodium 40 MG [facility] 50+Women [facility] 50+Women No [facility] 50+Women ALPRAZolam 1 MG ALPRAZolam 1 MG No 1{table t} BID ALPRAZolam 1 MG traZODone HCl 100 MG traZODone HCl 100 MG No traZODone HCl 100 MG buPROPion HCl ER (SR) 150 MG buPROPion HCl ER (SR) 150 MG No 1{table t_in e_morni ng} QD buPROPion HCl ER (SR) 150 MG buPROPion HCl ER (SR) 150 MG buPROPion HCl ER (SR) 150 MG No buPROPion HCl ER (SR) 150 MG Pantoprazol e Sodium 40 MG Pantoprazol e Sodium 40 MG No Pantoprazo le Sodium 40 MG Pantoprazol e Sodium 40 MG Pantoprazol e Sodium 40 MG No 1{table t} QD Pantoprazo le Sodium 40 MG [facility] 50+Women [facility] 50+Women No [facility] 50+Women ALPRAZolam 1 MG ALPRAZolam 1 MG No 1{table t} BID ALPRAZolam 1 MG traZODone HCl 100 MG traZODone HCl 100 MG No traZODone HCl 100 MG buPROPion HCl ER (SR) 150 MG buPROPion HCl ER (SR) 150 MG No 1{table t_in e_morni ng} QD buPROPion HCl ER (SR) 150 MG buPROPion HCl ER (SR) 150 MG buPROPion HCl ER (SR) 150 MG No buPROPion HCl ER (SR) 150 MG Pantoprazol e Sodium 40 MG Pantoprazol e Sodium 40 MG No Pantoprazo le Sodium 40 MG Pantoprazol e Sodium 40 MG Pantoprazol e Sodium 40 MG No 1{table t} QD Pantoprazo le Sodium 40 MG ALPRAZolam 1 MG ALPRAZolam 1 MG No 1{table t} BID ALPRAZolam 1 MG [facility] 50[facility]Women [facility] 50+Women No [facility] 50+Women Pantoprazol e Sodium 40 MG Pantoprazol e Sodium 40 MG No 1{table t} QD Pantoprazo le Sodium 40 MG [facility] Silver 50+Women [facility] Silver 50+Women No [facility] 50+Women ALPRAZolam 1 MG ALPRAZolam 1 MG No 1{table t} BID ALPRAZolam 1 MG traZODone HCl 100 MG traZODone HCl 100 MG No traZODone HCl 100 MG buPROPion HCl ER (SR) 150 MG buPROPion HCl ER (SR) 150 MG No 1{table t_in e_morni ng} QD buPROPion HCl ER (SR) 150 MG buPROPion HCl ER (SR) 150 MG buPROPion HCl ER (SR) 150 MG No buPROPion HCl ER (SR) 150 MG Pantoprazol e Sodium 40 MG Pantoprazol e Sodium 40 MG No Pantoprazo le Sodium 40 MG Pantoprazol e Sodium 40 MG Pantoprazol e Sodium 40 MG No 1{table t} QD Pantoprazo le Sodium 40 MG [facility] Silver 50+Women [facility] Silver 50+Women No [facility] Silver 50+Women ALPRAZolam 1 MG ALPRAZolam 1 MG No 1{table t} BID ALPRAZolam 1 MG traZODone HCl 100 MG traZODone HCl 100 MG No traZODone HCl 100 MG buPROPion HCl ER (SR) 150 MG buPROPion HCl ER (SR) 150 MG No 1{table t_in e_morni ng} QD buPROPion HCl ER (SR) 150 MG buPROPion HCl ER (SR) 150 MG buPROPion HCl ER (SR) 150 MG No buPROPion HCl ER (SR) 150 MG Immunizations Ordered Immunization Name Filled Immunization Name Date Status Comments Source SARS-COV-2 COVID-19 MODERNA BOOSTER VACCINE 2020-12-21 00:00:00 Completed [facility] SARS-COV-2 COVID-19 MODERNA 0.25ML BOOSTER VACCINE 2020-12-21 00:00:00 Completed [facility] SARS-COV-2 COVID-19 MODERNA VACCINE 2020-04-11 00:00:00 Completed [facility] SARS-COV-2 COVID-19 MODERNA 12+ YRS VACCINE 2020-04-11 00:00:00 Completed [facility] SARS-COV-2 COVID-19 MODERNA VACCINE 2020-03-14 00:00:00 Completed [facility] SARS-COV-2 COVID-19 MODERNA 12+ YRS VACCINE 2020-03-14 00:00:00 Completed [facility] SARS-COV-2 COVID-19 MODERNA 12+ YRS VACCINE Unknown Completed [facility] SARS-COV-2 COVID-19 MODERNA 12+ YRS VACCINE Unknown Completed [facility] SARS-COV-2 COVID-19 MODERNA 0.25ML BOOSTER VACCINE Unknown Completed [facility] Vital Signs Vital Name Observation Time Observation Value Comments Dereck lozano height 2022-08-28 11:20:00 62.5 [in_i] Comm on [facility] weight 2022-08-28 11:20:00 175.0 [lb_av] Co [facility] temperature 2022-08-28 11:20:00 96.4 [degF] Com [facility] bmi 2022-08-28 11:20:00 31.49 kg/m2 Comm on [facility] oximetry 2022-08-28 11:20:00 97 % Commo n [facility] respiratory rate 2022-08-28 11:20:00 17 /min [facility] blood pressure systolic 2022-08-28 11:20:00 136 mm[Hg] [facility] blood pressure diastolic 2022-08-28 11:20:00 80 mm[Hg] [facility] height 2022-05-27 11:20:00 62.5 [in_i] Comm on [facility] weight 2022-05-27 11:20:00 182.1 [lb_av] Co on [facility] temperature 2022-05-27 11:20:00 96.3 [degF] Com [facility] bmi 2022-05-27 11:20:00 32.77 kg/m2 Comm on [facility] oximetry 2022-05-27 11:20:00 95 % Commo n [facility] respiratory rate 2022-05-27 11:20:00 16 /min Common [facility] blood pressure systolic 2022-05-27 11:20:00 136 mm[facility]Hg[facility] [facility] blood pressure diastolic 2022-05-27 11:20:00 72 mm[Hg] Common [facility] height 2022-05-01 11:00:00 62.5 [in_i] Comm on [facility] weight 2022-05-01 11:00:00 182 [lb_av] Comm on [facility] temperature 2022-05-01 11:00:00 97.8 [degF] Com mon [facility] bmi 2022-05-01 11:00:00 32.75 kg/m2 Comm on [facility] blood pressure systolic 2022-05-01 11:00:00 130 mm[Hg] [facility] blood pressure diastolic 2022-05-01 11:00:00 82 mm[Hg] Common [facility] height 2022-04-03 13:00:00 62.5 [in_i] Comm on [facility] weight 2022-04-03 13:00:00 183 [lb_av] Comm on [facility] temperature 2022-04-03 13:00:00 97.0 [degF] Com mon [facility] bmi 2022-04-03 13:00:00 32.93 kg/m2 Comm on [facility] blood pressure systolic 2022-04-03 13:00:00 132 mm[Hg] [facility] blood pressure diastolic 2022-04-03 13:00:00 78 mm[Hg] Common [facility] height 2022-03-20 10:00:00 62.5 [in_i] Comm on [facility] weight 2022-03-20 10:00:00 182.2 [lb_av] Co mmon [facility] temperature 2022-03-20 10:00:00 96.9 [degF] Com mon [facility] bmi 2022-03-20 10:00:00 32.79 kg/m2 Comm on [facility] oximetry 2022-03-20 10:00:00 98 % Commo n [facility] respiratory rate 2022-03-20 10:00:00 18 /min Common [facility] blood pressure systolic 2022-03-20 10:00:00 130 mm[Hg] Common [facility] blood pressure diastolic 2022-03-20 10:00:00 69 mm[Hg] [facility] height 2022-03-20 09:00:00 62.5 [in_i] Comm on [facility] weight 2022-03-20 09:00:00 182.2 [lb_av] Co mmon [facility] temperature 2022-03-20 09:00:00 96.9 [degF] Com mon [facility] bmi 2022-03-20 09:00:00 32.79 kg/m2 Comm on [facility] oximetry 2022-03-20 09:00:00 98 % Commo n [facility] respiratory rate 2022-03-20 09:00:00 18 /min [facility] blood pressure systolic 2022-03-20 09:00:00 130 mm[Hg] Common [facility] blood pressure diastolic 2022-03-20 09:00:00 69 mm[Hg] [facility] Procedures Procedure Date / Time Performed Performing Clinicia n Source REFERRAL- REQUEST/RESPONSE 2023-04-22 05:01:00 Doctor Unassigned, [place] [facility] PHYSICIAN ORDERS 2022-05-06 05:01:00 Doctor Unas signed, [place] [facility] SARS-COV-2 COVID-19 VACCINE BOOSTER,0.25ML,IM (MODERNA) 2020-12-21 17:27:49 Doctor Unassigned, [place] [facility] Encounters Start Date/Time End Date/Time Encounter Type Admission Type Attending [facility] Care Facility Care Department Encounter ID Source 2022-08-28 11:07:01 Outpatient Manolo Quiñonez [facility] [id number] [facility] 2022-08-26 09:49:01 Outpatient Manolo Quiñonez [facility] [id number] [facility] 2022-04-03 13:18:00 Outpatient Manolo Quiñonez [facility] [id number] [facility] 2022-03-20 08:17:02 Outpatient Manolo Quiñonez [facility] [id number] [facility] 2023-04-22 00:00:00 2023-04-22 00:00:00 Orders Only Doctor Unassigned, [place] [facility] [id number] [facility] 2022-09-09 00:00:00 2022-09-09 00:00:00 (TEL) [facility] [id number] [facility] 2022-08-28 00:00:00 2022-08-28 00:00:00 OFFICE VISIT ESTAB PT LEVEL 4 [facility] [id number] [facility] 2022-07-23 00:00:00 2022-07-23 00:00:00 (TEL) [facility]LMLC [facility] [id number] [facility] 2022-05-28 13:00:00 2022-05-28 13:00:00 Outpatient KIA KOHLER [facility] [id number] [facility] 2022-05-28 00:00:00 2022-05-28 00:00:00 (TEL) STLMLC ST[facility]C [id number] [facility] 2022-05-27 00:00:00 2022-05-27 00:00:00 OFFICE VISIT ESTAB PT LEVEL 4 [facility] [id number] [facility] 2022-05-06 00:00:00 2022-05-06 00:00:00 Orders Only Doctor Unassigned, [place] [facility] [id number] [facility] 2022-05-06 00:00:00 2022-05-06 00:00:00 (TEL) STLMLC [facility] [id number] [facility] 2022-05-06 00:00:00 2022-05-06 00:00:00 (TEL) STLMLC [facility] [id number] [facility] 2022-05-01 00:00:00 2022-05-01 00:00:00 OFFICE VISIT ESTAB PT LEVEL 3 [facility] [id number] [facility] 2022-04-18 00:00:00 2022-04-18 00:00:00 (TEL) STLMLC [facility]C [id number] [facility] 2022-04-16 00:00:00 2022-04-16 00:00:00 (TEL) STLMLC [facility]C [id number] [facility] 2022-04-08 00:00:00 2022-04-08 00:00:00 (TEL) STLMLC [facility]C [id number] [facility] 2022-04-03 00:00:00 2022-04-03 00:00:00 OFFICE VISIT NEW PT LEVEL 3 [facility]C ST[facility]C [id number] [facility] 2022-03-20 00:00:00 2022-03-20 00:00:00 SUB ANNUAL [facility] VISIT [facility] STL[facility]C [id number] [facility] 2022-03-20 00:00:00 2022-03-20 00:00:00 OFFICE VISIT NEW PT LEVEL [id number] [facility] 2020-12-21 11:30:00 2020-12-21 11:30:00 Outpatient REUBEN GIL [facility] [id number] [facility] 2020-12-21 11:19:01 2020-12-21 11:19:20 Imm/Inj Visit Nurse, Yeyo Moreno Immunizatio Reuben Myers [facility] [id number] [facility] 2020-04-11 15:40:00 2020-04-11 15:40:00 Outpatient Nuha RENOOTIS GUTIÉRREZ [facility] [id number] [facility] 2020-04-11 15:40:00 2020-04-11 15:40:00 Outpatient Nuha RENOOTIS GUTIÉRREZ [facility] [id number] [facility] 2020-03-14 18:00:00 2020-03-14 18:00:00 Outpatient OTIS BOSTON [facility] [id number] [facility] 2020-03-14 18:00:00 2020-03-14 18:00:00 Outpatient OTIS BOSTON [facility] [id number] [facility] Results Test Description Test Time Test Comments Results Result Co mments Source HEMOGLOBIN [id number] 00:00:00* Test Item Value Reference Range Interpretation Comme nts HEMOGLOBIN A1c (test code = 4548-4) 5.8 % See_Comment H [Automated messa ge] The system which generated this result transmitted reference range: 4.2-5.6 %. The reference range was not used to interpret this result as normal/abnormal. HEPATITIS C [id number] 00:00:00* Test Item Value Reference Range Interpretation Comme nts HEPATITIS C ANTIBODY (test c ode = 78767-2) NON-REACTIVE NON-REACTIVE UA, MICROSCOPIC, REFLEX TO [id number] 00:00:00* Test Item Value Reference Range Interpretation Comme nts APPEARANCE (test code = 5767-9) CLOUDY CLEAR A BACTERIA (test code = 52869-1) 3+ NONE SEEN A BILIRUBIN (test code = 5770-3) NEGATIVE NEGATIVE CASTS, HYALINE (test code = 04133-7) TRACE NONE-TRACE COLOR (test code = 5778-6) YELLOW YELLOW-STRAW EPITHELIAL CELLS (test code = 14139-4) 11-15 /HPF See_Comment A [Automated [employer]] The system which generated this result transmitted reference range: 0-10 /HPF. The reference range was not used to interpret this result as normal/abnormal. GLUCOSE (test code = 5792-7) NEGATIVE NEGATIVE KETONES (test code = 5797-6) NEGATIVE NEGATIVE LEUKOCYTE ESTERASE (test code = 5799-2) 2+ NEGATIVE A NITRITE (test code = 5802-4) NEGATIVE NEGATIVE OCCULT BLOOD (test code = 37857-5) NEGATIVE NEGATIVE pH (test code = 5803-2) 5.0 5.0-9.0 PROTEIN (test code = 73604-2) NEGATIVE NEGATIVE RED BLOOD CELLS (test code = 45916-7) 0-2 /HPF See_Comment [Automated [employer] ge] The system which generated this result transmitted reference range: 0-2 /HPF. The reference range was not used to interpret this result as normal/abnormal. SPECIFIC GRAVITY (test code = 5811-5) 1.019 1.005-1.035 UROBILINOGEN (test code = 75889-2) 0.2 MG/DL See_Comment [Automated [employer] ge] The system which generated this result transmitted reference range: <=2.0 MG/DL. The reference range was not used to interpret this result as normal/abnormal. WHITE BLOOD CELLS (test code = 52733-7) >50 /HPF See_Comment A [Automated message] The system which generated this result transmitted reference range: 0-5 /HPF. The reference range was not used to interpret this result as normal/abnormal. COMPREHENSIVE METABOLIC [id number] 00:00:00* Test Item Value Reference Range Interpretation Comme nts ALBUMIN (test code = 1751-7) 4.5 G/DL See_Comment [Automated messa ge] The system which generated this result transmitted reference range: 3.5-5.2 G/DL. The reference range was not used to interpret this result as normal/abnormal. ALKALINE PHOSPHATASE (test code = 6768-6) 80 U/L See_Comment [Automated message] The system which generated this result transmitted reference range: 40-142 U/L. The reference range was not used to interpret this result as normal/abnormal. BILIRUBIN, TOTAL (test code = 1975-2) 0.6 MG/DL See_Comment [Automated message] The system which generated this result transmitted reference range: <=1.2 MG/DL. The reference range was not used to interpret this result as normal/abnormal. BUN (test code = 3094-0) 12 MG/DL See_Comment [Automated messa ge] The system which generated this result transmitted reference range: 8-23 MG/DL. The reference range was not used to interpret this result as normal/abnormal. CALCIUM (test code = 60928-5) 9.8 MG/DL See_Comment [Automated messa ge] The system which generated this result transmitted reference range: 8.5-10.5 MG/DL. The reference range was not used to interpret this result as normal/abnormal. CALC A/G RATIO (test code = 1759-0) 1.9 RATIO See_Comment [Automated messa ge] The system which generated this result transmitted reference range: 1.0-2.6 RATIO. The reference range was not used to interpret this result as normal/abnormal. CALC BUN/CREAT (test code = 3097-3) 13 RATIO See_Comment [Automated messa ge] The system which generated this result transmitted reference range: 6-28 RATIO. The reference range was not used to interpret this result as normal/abnormal. CALC GLOBULIN (test code = 82107-0) 2.4 G/DL See_Comment [Automated messa ge] The system which generated this result transmitted reference range: 1.9-3.7 G/DL. The reference range was not used to interpret this result as normal/abnormal. CARBON DIOXIDE (test code = 1963-8) 27 MEQ/L See_Comment [Automated messa ge] The system which generated this result transmitted reference range: 19-31 MEQ/L. The reference range was not used to interpret this result as normal/abnormal. CHLORIDE (test code = 2075-0) 108 MEQ/L See_Comment H [Automated messa ge] The system which generated this result transmitted reference range: 95-107 MEQ/L. The reference range was not used to interpret this result as normal/abnormal. CREATININE (test code = 2160-0) 0.89 MG/DL See_Comment [Automated messa ge] The system which generated this result transmitted reference range: 0.60-1.30 MG/DL. The reference range was not used to interpret this result as normal/abnormal. eGFR (2020 CKD-EPI) (test code = 44231-2) 71 ML/MIN/1.73 See_Comment [Automated messa ge] The system which generated this result transmitted reference range: >60 ML/MIN/1.73. The reference range was not used to interpret this result as normal/abnormal. GLUCOSE (test code = 1558-6) 93 MG/DL See_Comment [Automated messa ge] The system which generated this result transmitted reference range: 70-99 MG/DL. The reference range was not used to interpret this result as normal/abnormal. POTASSIUM (test code = 2823-3) 4.7 MEQ/L See_Comment [Automated messa ge] The system which generated this result transmitted reference range: 3.5-5.4 MEQ/L. The reference range was not used to interpret this result as normal/abnormal. PROTEIN, TOTAL (test code = 2885-2) 6.9 G/DL See_Comment [Automated messa ge] The system which generated this result transmitted reference range: 6.1-8.3 G/DL. The reference range was not used to interpret this result as normal/abnormal. AST (test code = 1920-8) 29 U/L See_Comment [Automated messa ge] The system which generated this result transmitted reference range: 9-40 U/L. The reference range was not used to interpret this result as normal/abnormal. ALT (test code = 1742-6) 39 U/L See_Comment [Automated messa ge] The system which generated this result transmitted reference range: 5-40 U/L. The reference range was not used to interpret this result as normal/abnormal. SODIUM (test code = 2951-2) 146 MEQ/L See_Comment [Automated messa ge] The system which generated this result transmitted reference range: 133-146 MEQ/L. The reference range was not used to interpret this result as normal/abnormal.
[2023-04-30 22:36] LABS: SARS-CoV-2 Antigen CONTROL BLUE LINE VIS/BG OK; SARS-CoV-2 Antigen Rapid Res Negative (Negative)
[2023-04-30] MEDS ORDERED: MORPHINE 2 MG/ML SYR ONE (22:55)
[2023-04-30] MEDS ORDERED: FAMOTIDINE 20 MG/2 ML VIAL IV ONE (22:55)
[2023-04-30] MEDS ORDERED: NA CHLORIDE 0.9% 1,000 ML ONE (22:55)
[2023-04-30] MEDS ORDERED: ONDANSETRON 4 MG/2 ML VIAL ONE (22:55)
[2023-04-30 23:36] LABS: Absolute Lymphocytes (CBC) 0.2 K/uL (0.7-4.9); Absolute Monocytes 0.3 K/uL (0.1-1.3); Absolute Neutrophil 9.6 K/uL (1.8-8.0); Basophils % 0.2 % (0-1.3); Eosinophils % 0.1 % (0-4.4); Hemoglobin 15.4 g/dL (12.0-15.0); Lymphocytes % 2.3 % (15.3-44.8); MCH 31.2 pg (27.0-35.0); MCHC 34.2 g/dL (32.0-36.0); MPV 9.7 fL (7.6-11.3); Monocytes % 2.8 % (3.3-12.3); Neutrophils % 94.6 % (41.7-73.7); Platelets 258 thou/uL (152-406); RBC Red Blood Cell Count 4.95 M/uL (3.86-4.86); Red Cell Distribution Width 13.1 % (12.1-15.2)
[2023-04-30] MEDS ORDERED: LORazepam 2 MG/ML VIAL ONE (23:42)
[2023-04-30 23:45] LABS: Sqamous Epithelial <5 /HPF (None Seen); Urine Bacteria None Seen /HPF (<20); Urine Bilirubin NEGATIVE (Negative); Urine Blood Trace (Negative); Urine Clarity Turbid (Clear); Urine Color Yellow (Yellow); Urine Culture Reflex Order NOT NEEDED; Urine Glucose NEGATIVE (Negative); Urine Ketones NEGATIVE (Negative); Urine Microscopic Reflex YN ORDER UMIC; Urine Mucus 2+ /HPF (None Seen); Urine Nitrite NEGATIVE (Negative); Urine Protein TRACE (Negative); Urine RBC <5 /HPF (None Seen); Urine Urobilinogen Normal (Normal); Urine WBC <5 /HPF (<5); Urine pH 5.5 (5.0-7.0)
[2023-05-01 00:04] LABS: Albumin/Globulin Ratio 0.8 (1.1-1.8); Anion Gap 9.5 mEq/L (5.0-15.0); Bilirubin Total 1.4 mg/dL (0.2-1.0); Globulin 4.8 g/dL (2.3-3.5); Protein, Total 8.8 g/dL (6.4-8.2)
[2023-05-01 00:05] LABS: Potassium 4.5 mEq/L (3.5-5.1)
[2023-05-01] MEDS ORDERED: PROMETHAZINE INJ 25 MG/ML AMP ONE (02:28)
[2023-05-01] MEDS ORDERED: PIPERACIL/TAZO 3.375 GM VIAL IV ONE (02:29)
[2023-05-01] MEDS ORDERED: NA CHLORIDE 0.9% 1,000 ML ONE (02:29)
[2023-05-01] MEDS ORDERED: NA CHLORIDE 0.9% 100 ML ONE (02:30)
[2023-05-01] MEDS ORDERED: ONDANSETRON 4 MG/2 ML VIAL IV PRN (02:36)
--- NOTE | 2023-05-01 02:36 | P.HP ---
Certification for Inpatient Patient admitted to: Inpatient With expected LOS: >2 Midnights Practitioner: I am a practitioner with admitting privileges, knowledge of patient current condition, hospital course, and medical plan of care. Services: Services provided to patient in accordance with Admission requirements found in Title 42 Section 412.3 of the Code of Federal Regulations Patient History Date of Service: 05/01/23 Reason for admission: Porcelain Gallbladder, acute cholecystitis, cholelithiasis. History of Present Illness: 67-year-old female patient who came to ED with complaint of abdominal pain, nausea, vomiting, diarrhea. She reports pain has been going on for about 2 days and with associated nausea with diarrhea. Pain is rated 6-8 out of 10 in intensity. 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 She was started on broad-spectrum antibiotic therapy and was admitted for inpatient care. Surgeon was consulted for management of intra-abdominal pathology. Allergies No Known Allergies Allergy (Unverified 10/15/21 16:44) Review of Systems General: Malaise Eyes: Unremarkable ENT: Unremarkable Respiratory: Unremarkable Cardiovascular: Unremarkable Gastrointestinal: Nausea, Vomiting, Abdominal Pain, Diarrhea Genitourinary: Unremarkable Musculoskeletal: Unremarkable Integumentary: Unremarkable Neurological: Unremarkable Lymphatics: Unremarkable Physical Examination - Physical Exam General: Alert, Oriented x3 HEENT: Atraumatic Neck: Supple Cardiovascular: Regular rate/rhythm, Normal S1 S2 Gastrointestinal: Tenderness Musculoskeletal: No swelling Neurological: Normal speech, Normal strength at 5/5 x4 extr - Studies Laboratory Data (last 24 hrs) 04/30/23 04/30/23 23:20 23:20 WBC 10.10 Hgb 15.4 H Hct 45.0 Plt Count 258 Sodium 138 Potassium 4.5 BUN 16 Creatinine 0.99 Glucose 124 H Total Bilirubin 1.4 H AST 49 H ALT 48 Alkaline Phosphatase 90 Lipase 30 Microbiology Data (last 24 hrs): 04/30/23 22:05 Nasopharnyx Influenza Type A Antigen Screen - Final 04/30/23 22:05 Nasopharnyx Influenza Type B Antigen Screen - Final Assessment and Plan - Plan Porcelain gallbladder/cholecystitis/cholelithiasis: Patient has imaging and clinical finding concerning for acute cholecystitis and she also has porcelain gallbladder. Surgeon has been consulted. Continue empiric antibiotic therapy with Zosyn. Continue pain control with as needed morphine. Surgeon to evaluate for possible cholecystectomy Sepsis: Present on admission. Deemed due to acute cholecystitis episode Lactate is elevated at 2.7. IV antibiotic therapy and IV fluids to be continued for management. Will follow lactic acid level reflexively. Prophylaxis: Lovenox for DVT prophylaxis CODE STATUS: Full code Disposition: We will manage intra-abdominal pathology and she will be discharged once cleared by surgical service. - Advance Directives Does patient have a Living Will: No Does patient have a Durable POA for Healthcare: No
--- NOTE | 2023-05-01 03:27 | EDPHYS ---
Physician Documentation [facility] Name: Consuelo Bliss Age: 67 yrs Sex: Female : 1955 Arrival Date: 04/30/2023 Time: 21:36 Bed 6 Private MD: Amelie Calderon ED Physician Galen Cerrato HPI: 04/29 22:50 This 67 yrs old Female presents to ER via Ambulatory with complaints of cp Vomiting/Diarrhea. 22:50 The patient presents to the emergency department with vomiting, that is intermittent, 3 cp times today, described as bilious, diarrhea, that is intermittent, 3 times today, abdominal pain. Onset: The symptoms/episode began/occurred this morning. Possible causes: unknown. Associated signs and symptoms: Pertinent positives: anorexia, Pertinent negatives: constipation, fever, GI bleeding. Severity of symptoms: in the emergency department the symptoms are unchanged despite home interventions. Patient also c/o right shoulder and upper arm pain that she has been seen by DR Moreno who performed shoulder injection. Historical: - Allergies: 22:00 No Known Allergies; km8 - PMHx: 22:00 Anxiety; GERD; km8 - PSHx: 22:00 None; km8 - Immunization history:: Client reports receiving the 2nd dose of the Covid vaccine, Flu vaccine is up to date. - Social history:: Smoking status: Patient reports the use of cigarette tobacco products, 1 a day, Patient uses alcohol, only on a social basis. Patient/guardian denies using street drugs. ROS: 22:55 Constitutional: Negative for body aches, chills, fever, poor PO intake, cp 22:55 Eyes: Negative for injury, pain, redness, and discharge, cp 22:55 ENT: Negative for drainage from ear(s), ear pain, sore throat, difficulty swallowing, difficulty handling secretions, 22:55 Cardiovascular: Negative for chest pain, edema, palpitations, 22:55 Respiratory: Negative for cough, shortness of breath, wheezing, 22:55 MS/extremity: Positive for pain, of the right shoulder and right upper arm, Exam: 23:15 ECG was reviewed by the Attending Physician. cp 04/30 03:27 Constitutional: This is a well developed, well nourished patient who is awake, alert, sp4 and in no acute distress. Head/Face: Normocephalic, atraumatic. Eyes: Pupils equal round and reactive to light, extra-ocular motions intact. Lids and lashes normal. Conjunctiva and sclera are not injected. Cornea within normal limits. Periorbital areas with no swelling, redness, or edema. ENT: Nares patent. No nasal discharge, no septal abnormalities noted. Tympanic membranes are normal and external auditory canals are clear. Oropharynx with no redness, swelling, or masses, exudates, or evidence of obstruction, uvula midline. Mucous membranes moist. Neck: Trachea midline, no thyromegaly or masses palpated, and no cervical lymphadenopathy. Supple, full range of motion without nuchal rigidity, or vertebral point tenderness. Chest/axilla: Normal chest wall appearance and motion. Nontender with no deformity. No lesions are appreciated. Cardiovascular: Regular rate and rhythm with a normal S1 and S2. No gallops, murmurs, or rubs. Normal PMI, no JVD. No pulse deficits. Respiratory: Lungs have equal breath sounds bilaterally, clear to auscultation and percussion. No rales, rhonchi or wheezes noted. No increased work of breathing, no retractions or nasal flaring. Abdomen/GI: Soft, with normal bowel sounds. No distension or tympany. No guarding or rebound. No evidence of tenderness throughout. Back: No spinal tenderness. No costovertebral tenderness. Skin: Warm, dry with normal turgor. Normal color with no rashes, no lesions, and no evidence of cellulitis. MS/ Extremity: Pulses equal, no cyanosis. Neurovascular intact. Full, normal range of motion. Neuro: Awake and alert, GCS 15, oriented to person, place, time, and situation. Cranial nerves II-XII grossly intact. Motor strength 5/5 in all extremities. Sensory grossly intact. Psych: Awake, alert, with orientation to person, place and time. Behavior, mood, and affect are within normal limits Vital Signs: 04/29 21:59 BP 139 / 88; Pulse 108; Resp 16; Temp 99.9(O); Pulse Ox 99% on R/A; Weight 79.38 kg km8 (R); Height 5 ft. 1 in. (R); Pain 10/10; 23:04 BP 153 / 77; Pulse 85; Resp 16; Pulse Ox 98% on R/A; kd3 23:15 BP 169 / 78; Pulse 74; Resp 16; Pulse Ox 100% ; kd3 23:57 BP 165 / 68; Pulse 84; Resp 15; Pulse Ox 99% ; kd3 04/30 02:00 BP 164 / 76; Pulse 78; Resp 15; Pulse Ox 100% ; vc1 03:00 BP 165 / 66; Pulse 77; Resp 16; Pulse Ox 96% ; vc1 04/29 21:59 Body Mass Index 33.07 (79.38 kg, 154.94 cm) [facility] 04/29 21:59 Pain Scale: Adult [facility] MDM: 04/29 22:03 Patient medically screened. cp 04/30 02:30 Counseling: I had a detailed discussion with the patient and/or guardian regarding the cp historical points, exam findings, and any diagnostic results supporting the discharge/admit diagnosis, lab results, radiology results, the need for further work-up and treatment in the hospital. 02:30 Management of patient was discussed with the following: Rider Ticket Worker: DR Garzon will cp consult for surgery and patient will be admitted to hospitalist, DR Snowden after discussion. Response to treatment: the patient's symptoms have markedly improved after treatment. 03:27 Differential diagnosis: Nonspecific abd pain, gastritis, cholecystitis, pancreatitis, sp4 appendicitis, diverticulitis, viral gastroenteritis, gastroenteritis. Data reviewed: vital signs, nurses notes. ED course: CT revealed - IMPRESSION: 1. Porcelain gallbladder with cholelithiasis and suspected obstructive stone within the gallbladder neck/proximal cystic duct. Recommend surgical consultation and confirmation of cystic duct obstruction with HIDA scan, or MRCP. Further characterization by gallbladder ultrasound unlikely to be helpful given dense gallbladder mural calcification and patient body habitus. 2. No other acute findings in the abdomen or pelvis. 3. Colonic diverticulosis without evidence of acute diverticulitis. . 04/29 22:02 Order name: SARS RAPID; Complete Time: 23:25 [facility] 04/29 22:02 Order name: Flu; Complete Time: 23:25 [facility] 04/29 22:46 Order name: CBC with Diff; Complete Time: 00:17 cp 04/30 00:17 Interpretation: Normal except: RBC 4.95; HGB 15.4; EDUARD% 94.6; LYM% 2.3; MN% 2.8; NEUT A cp 9.6; LYMA 0.2. 04/29 22:46 Order name: CMP; Complete Time: 00:17 cp 04/30 00:18 Interpretation: Normal except: GLUC 124; GFR 62; AST 49; BILIT 1.4; TP 8.8; GLOB 4.8; cp A/G 0.8. 04/29 22:46 Order name: Lipase; Complete Time: 00:17 cp 04/29 22:46 Order name: Urinalysis w/ reflexes; Complete Time: 00:17 cp 04/30 02:15 Interpretation: Normal except: [facility] Turbid; UBLD Trace; UPROT TRACE; UESTR 250. cp 04/30 02:10 Order name: Lactate w/ 2H reflex if indic. cp 04/30 02:10 Order name: Blood Culture Adult (2) cp 04/30 02:46 Order name: CBC with Automated Diff EDMS 04/30 02:46 Order name: CBC with Automated Diff EDMS 04/30 02:46 Order name: CBC with Automated Diff EDMS 04/30 02:46 Order name: CBC with Automated Diff EDMS 04/30 02:46 Order name: Comprehensive Metabolic Panel EDMS 04/30 02:46 Order name: Comprehensive Metabolic Panel EDMS 04/30 02:46 Order name: Comprehensive Metabolic Panel EDMS 04/30 02:46 Order name: Comprehensive Metabolic Panel [facility] 04/29 22:46 Order name: CT Abd/Pelvis - IV Contrast Only 04/29 23:37 Order name: XRAY Chest (1 view) 04/30 02:43 Order name: Cholangiogram [facility] 04/29 23:24 Order name: EKG; Complete Time: 23:25 cp 04/30 02:43 Order name: Dr Duran Consult [facility] 04/30 02:46 Order name: CONS Physician Consult [facility] 04/29 22:46 Order name: IV Saline Lock; Complete Time: 23:12 cp 04/29 22:46 Order name: Labs collected and sent; Complete Time: 23:12 cp 04/29 23:24 Order name: EKG - Nurse/Tech; Complete Time: 23:26 cp 04/30 02:23 Order name: NPO; Complete Time: 03:06 cp EC/21 23:15 Rate is 95 beats/min. Rhythm is regular. SD interval is normal. QRS interval is normal. cp QT interval is normal. Interpreted by me. Reviewed by me. Administered Medications: 23:12 Drug: NS 0.9% IV 1000 ml IV at 1 bolus Per protocol; 1000 mL bolus Route: IV; Rate: 1 kd3 bolus; Site: left antecubital; 04/30 03:06 Follow up: IV Status: Completed infusion; IV Intake: 1000ml 3 04/29 23:12 Drug: Famotidine IVP 20 mg IVP once; dilute with 10 mL 0.9% NaCl; give over 2 minutes kd3 Route: IVP; Site: left antecubital; 04/30 03:06 Follow up: Response: No adverse reaction 3 04/29 23:12 Drug: Ondansetron IVP 4 mg IVP once; over 2 minutes Route: IVP; Site: left antecubital; 3 04/30 03:05 Follow up: Response: No adverse reaction [facility] 04/29 23:12 Drug: morphine IVP or IV 2 mg IVP once over 4 mins Route: IVP; Infused Over: 4 mins; kd3 Site: left antecubital; 23:49 Drug: Ativan IVP 1 mg IVP once Route: IVP; Site: left antecubital; 3 04/30 02:44 Drug: Promethazine IVP 25 mg IVP once Route: IVP; Site: left antecubital; 03:06 Follow up: Response: No adverse reaction; Marked relief of symptoms 3 02:44 Drug: NS 0.9% IV 1000 ml IV at 100 ml/hr continuous Route: IV; Rate: 100 ml/hr; Site: left antecubital; 03:30 Drug: Piperacillin-Tazobactam IVPB 3.375 grams IVPB once over 60 mins; (mix in NS 100 vc1 mL) Route: IVPB; Infused Over: 60 mins; Site: left antecubital; Disposition: 03:23 Co-signature as Attending Physician, Galen Cerrato MD I agree with the assessment sp4 and plan of care. I reviewed the patient's care provided by Advanced Practice Provider \T\ agree w/ the diagnosis \T\ care plan. I personally saw the pt \T\ performed a substantive portion of the visit, incldng all aspects of the (History/Exam/Medical Decision Making). Disposition Summary: 05/01/23 03:26 Hospitalization Ordered Notes: Hospitalization Status: Inpatient Admission sp4 Provider: Miguel Snowden sp4 Location: Telemetry/MedSurg (Inpatient) sp4 Condition: Stable sp4 Problem: new sp4 Symptoms: have improved sp4 Bed/Room Type: Standard sp4 Room Assignment: 408(05/01/23 03:52) rv1 Diagnosis - Other cholelithiasis with obstruction sp4 - Porcelain gallbladder, Obstructive gallbladder stone sp4 Forms: - Medication Reconciliation Form sp4 - SBAR form sp4 - Leadership Thank You Letter sp4 Signatures: Dispatcher [employer] EDMS Angelina Mendenhall RN RN Gregorio Lopes PA PA cp Doucette, Kyli RN RN kd3 Estelle Walker RN RN vc1 Humera Ferguson rv1 Galen Cerrato MD MD sp4 Meron Espinosa RN RN km8 Minal Minor RN lg3 Corrections: (The following items were deleted from the chart) 03:28 03:26 sp4 rv1 03:52 03:28 427 rv1 rv1
--- NOTE | 2023-05-01 03:27 | ER ---
Nurse's Notes [facility] Name: Consuelo Bliss Age: 67 yrs Sex: Female : 1955 Arrival Date: 04/30/2023 Time: 21:36 Bed 6 Private MD: Amelie Calderon Diagnosis: Other cholelithiasis with obstruction;Porcelain gallbladder, Obstructive gallbladder stone Presentation: 04/29 21:59 Chief complaint: Patient states: vomiting and diarrhea starting this morning; denies km8 fever, denies pain. Coronavirus screen: Client denies travel out of the [place] in the last 14 days. Ebola Screen: No symptoms or risks identified at this time. Initial Sepsis Screen: Does the patient meet any 2 criteria? HR > 90 bpm. No. Patient's initial sepsis screen is negative. Does the patient have a suspected source of infection? No. Patient's initial sepsis screen is negative. Risk Assessment: Do you want to hurt yourself or someone else? Patient reports no desire to harm self or others. Onset of symptoms was April 30, 2023 at 08:00. 21:59 Method Of Arrival: Ambulatory km8 21:59 Acuity: ARMAND 3 km8 Triage Assessment: 22:00 General: Appears in no apparent distress. uncomfortable, Behavior is cooperative, km8 appropriate for age, anxious. Pain: Complains of pain in anterior aspect of right shoulder Pain currently is 10 out of 10 on a pain scale. Is chronic. EENT: No signs and/or symptoms were reported regarding the EENT system. Neuro: Level of Consciousness is awake, alert, obeys commands, Oriented to person, place, time, situation. Cardiovascular: Denies chest pain, shortness of breath, Patient's skin is warm and dry. Respiratory: Airway is patent Respiratory effort is even, unlabored, Respiratory pattern is regular, symmetrical. GI: Reports diarrhea, vomiting, Patient currently denies abdominal pain, nausea. : No signs and/or symptoms were reported regarding the genitourinary system. Derm: No signs and/or symptoms reported regarding the dermatologic system. Skin is intact, is healthy with good turgor, Skin is dry, Skin is pink, warm \T\ dry. normal, Skin temperature is warm. Musculoskeletal: No signs and/or symptoms reported regarding the musculoskeletal system. Range of motion: intact in all extremities. Historical: - Allergies: 22:00 No Known Allergies; km8 - PMHx: 22:00 Anxiety; GERD; km8 - PSHx: 22:00 None; km8 - Immunization history:: Client reports receiving the 2nd dose of the Covid vaccine, Flu vaccine is up to date. - Social history:: Smoking status: Patient reports the use of cigarette tobacco products, 1 a day, Patient uses alcohol, only on a social basis. Patient/guardian denies using street drugs. Screenin/22 00:11 [facility] ED Fall Risk Assessment (Adult) History of falling in the last 3 months, kd3 including since admission No falls in past 3 months (0 pts) Confusion or Disorientation No (0 pts) Intoxicated or Sedated No (0 pts) Impaired Gait No (0 pts) Mobility Assist Device Used No (0 pt) Altered Elimination No (0 pt) Score/Fall Risk Level 0 - 2 = Low Risk Oriented to surroundings. Abuse screen: Denies threats or abuse. Denies injuries from another. Nutritional screening: No deficits noted. Tuberculosis screening: No symptoms or risk factors identified. Assessment: 04/29 23:27 General: Pt denies chest pain . Neuro: Level of Consciousness is awake, alert, obeys kd3 commands, Oriented to person, place, time, situation. GI: Reports diarrhea, nausea, vomiting. 04/30 00:11 General: Pt changed into a gown and provided with warm blankets. . kd3 02:46 General: Arti Willett [id number]. vc1 03:32 Reassessment: Patient appears in no apparent distress at this time. No changes from vc1 previously documented assessment. Patient and/or family updated on plan of care and expected duration. Pain level reassessed. Patient is alert, oriented x 3, equal unlabored respirations, skin warm/dry/pink. Vital Signs: 04/29 21:59 BP 139 / 88; Pulse 108; Resp 16; Temp 99.9(O); Pulse Ox 99% on R/A; Weight 79.38 kg km8 (R); Height 5 ft. 1 in. (R); Pain 10/10; 23:04 BP 153 / 77; Pulse 85; Resp 16; Pulse Ox 98% on R/A; kd3 23:15 BP 169 / 78; Pulse 74; Resp 16; Pulse Ox 100% ; kd3 23:57 BP 165 / 68; Pulse 84; Resp 15; Pulse Ox 99% ; kd3 04/30 02:00 BP 164 / 76; Pulse 78; Resp 15; Pulse Ox 100% ; vc1 03:00 BP 165 / 66; Pulse 77; Resp 16; Pulse Ox 96% ; vc1 04/29 21:59 Body Mass Index 33.07 (79.38 kg, 154.94 cm) km8 04/29 21:59 Pain Scale: Adult [facility] ED Course: 04/29 21:38 Patient arrived in ED. mr 21:38 Amelie Calderon is Private Physician. mr 21:39 Gregorio Glynn PA is PHCP. cp 21:39 Galen Cerrato MD is Attending Physician. cp 22:00 Triage completed. km8 22:00 Arm band placed on right wrist. km8 22:06 Patient placed in waiting room, Patient notified of wait time. km8 22:06 COVID swab sent to lab. Flu and/or RSV swab sent to lab. km8 22:36 Francia Man, ANTIONETTE is Primary Nurse. kd3 23:12 CBC with Diff Sent. kd3 23:26 Inserted saline lock: 20 gauge in left antecubital area, using aseptic technique. Blood kd3 collected. 04/30 00:11 Patient has correct armband on for positive identification. Provided Education on: EKG. kd3 00:11 No provider procedures requiring assistance completed. kd3 00:12 XRAY Chest (1 view) In Process Unspecified. EDMS 00:28 CT Abd/Pelvis - IV Contrast Only In Process Unspecified. EDMS 03:06 First set of blood cultures drawn by me. vc1 03:25 Miguel Sonwden MD is Hospitalizing Provider. sp4 03:31 Second set of blood cultures drawn. vc1 05:02 Patient admitted, IV remains in place. vc1 Administered Medications: 04/29 23:12 Drug: NS 0.9% IV 1000 ml IV at 1 bolus Per protocol; 1000 mL bolus Route: IV; Rate: 1 kd3 bolus; Site: left antecubital; 04/30 03:06 Follow up: IV Status: Completed infusion; IV Intake: 1000ml lg3 04/29 23:12 Drug: Famotidine IVP 20 mg IVP once; dilute with 10 mL 0.9% NaCl; give over 2 minutes kd3 Route: IVP; Site: left antecubital; 04/30 03:06 Follow up: Response: No adverse reaction 3 04/29 23:12 Drug: Ondansetron IVP 4 mg IVP once; over 2 minutes Route: IVP; Site: left antecubital; 3 04/30 03:05 Follow up: Response: No adverse reaction 3 04/29 23:12 Drug: morphine IVP or IV 2 mg IVP once over 4 mins Route: IVP; Infused Over: 4 mins; kd3 Site: left antecubital; 23:49 Drug: Ativan IVP 1 mg IVP once Route: IVP; Site: left antecubital; 3 04/30 02:44 Drug: Promethazine IVP 25 mg IVP once Route: IVP; Site: left antecubital; 03:06 Follow up: Response: No adverse reaction; Marked relief of symptoms 3 02:44 Drug: NS 0.9% IV 1000 ml IV at 100 ml/hr continuous Route: IV; Rate: 100 ml/hr; Site: left antecubital; 03:30 Drug: Piperacillin-Tazobactam IVPB 3.375 grams IVPB once over 60 mins; (mix in NS 100 vc1 mL) Route: IVPB; Infused Over: 60 mins; Site: left antecubital; Medication: 00:11 VIS not applicable for this client. kd3 Intake: 03:06 IV: 1000ml; Total: 1000ml. lg3 Outcome: 03:26 Decision to Hospitalize by Provider. sp4 05:02 Admitted to Tele accompanied by nurse, via wheelchair, room 408, Report called to vc1 faxed 05:02 Condition: good 05:02 Instructed on the need for admit, 05:03 Patient left the ED. 1 Signatures: Dispatcher [employer] EDMS Angelina Mendenhall RN RN kl Rivera, Mary, Reg Reg mr Gregorio Glynn, Minal Brown cp, RN RN lg3 Francia Man RN RN kd3 Estelle Walker RN RN vc1 Galen Cerrato MD MD sp4 Jesús, Meron, RN RN km8
[2023-05-01] MEDS ORDERED: ONDANSETRON 4 MG/2 ML VIAL ONE (03:42)
[2023-05-01] MEDS ORDERED: MORPHINE 2 MG/ML SYR ONE (03:42)
[2023-05-01 06:32] VITALS: BMI 33.0
[2023-05-01] MEDS: ENOXAPARIN 40 MG/0.4 ML SQ SCH (09:00)
[2023-05-01] MEDS: MORPHINE 2 MG/ML SYR IV PRN (09:03)
[2023-05-01] MEDS: PIPER TAZO 3.375 GM in NA CHLORIDE 0.9% 100 ML IV SCH (09:04)
--- NOTE | 2023-05-01 09:38 | RAD REPORT ---
EXAM DESCRIPTION: MRICholangiogram05/01/2023 8:46 am CLINICAL HISTORY: Abdominal pain COMPARISON: CT abdomen May 01, 2023 TECHNIQUE: Magnetic resonance cholangiogram was performed.3D MIP reconstruction performed. Additiona l axial and coronal magnetic resonance imaging of abdomen obtained. FINDINGS: The gallbladder is filled with stones. A stone is present within the cystic duct An additional stone is present within common bile duct. The gallbladder wall is calcified and thickened. Common bile duct is normal caliber. A filling defect is not seen within the duct Pancreatic duct is normal caliber IMPRESSION: Cholelithiasis. Calcified gallbladder wall A stone within cystic duct present
--- NOTE | 2023-05-01 10:44 | P.PN ---
Subjective Date of Service: 05/02/23 Chief Complaint: Porcelain Gallbladder, acute cholecystitis, cholelithiasis. Pt is resting comfortably in bed. She denies any fever, chest pain or SOB. She complains of nausea and vomiting. 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 The GEn surgeon explained the procedure that is required. Pt wanted to try CLD to see if she will have any abd pain. No other complaints. Review of Systems General: Unremarkable Eyes: Unremarkable ENT: Unremarkable Respiratory: Unremarkable Cardiovascular: Unremarkable Gastrointestinal: Nausea, Vomiting, Abdominal Pain Genitourinary: Unremarkable Musculoskeletal: Unremarkable Neurological: Unremarkable Lymphatics: Unremarkable Physical Examination - Vital Signs Temperature: 99.5 F Blood Pressure: 164/79 Pulse: 84 Respirations: 16 Pulse Ox (%): 99 - Physical Exam General: Alert, In no apparent distress, Oriented x3 HEENT: Atraumatic, Normocephalic, PERRLA Neck: Supple, 2+ carotid pulse no bruit Respiratory: Clear to auscultation bilaterally, Normal air movement Cardiovascular: No edema, Normal pulses, Regular rate/rhythm, Normal S1 S2 Capillary refill: <2 Seconds Gastrointestinal: Normal bowel sounds, Soft and benign, Non-distended Musculoskeletal: No clubbing, No swelling Integumentary: No rashes, No breakdown Neurological: Normal gait, Normal speech, Normal strength at 5/5 x4 extr, Normal tone, Sensation intact Lymphatics: No axilla or inguinal lymphadenopathy - Studies Laboratory Data (last 24 hrs) 04/30/23 04/30/23 23:20 23:20 WBC 10.10 Hgb 15.4 H Hct 45.0 Plt Count 258 Sodium 138 Potassium 4.5 BUN 16 Creatinine 0.99 Glucose 124 H Total Bilirubin 1.4 H AST 49 H ALT 48 Alkaline Phosphatase 90 Lipase 30 Microbiology Data (last 24 hrs): 04/30/23 22:05 Nasopharnyx Influenza Type A Antigen Screen - Final 04/30/23 22:05 Nasopharnyx Influenza Type B Antigen Screen - Final Assessment And Plan - Plan Porcelain gallbladder/Severe sepsis 2/2 cholecystitis/cholelithiasis: Will continue iv zosyn and prn pain med. Gen surgeon is following. Pt wants to try CLD in order to check if she will have any abd pain. Lactic acidosis: Lactate is elevated at 2.7. Will continue IVF and trend lactate. DVT prophylaxis: lovenox Code: Full code Disposition: Pending hospital course.
--- NOTE | 2023-05-01 11:25 | RAD REPORT ---
EXAM DESCRIPTION: RAD - Chest Single View - 05/01/2023 12:10 am CLINICAL HISTORY: Right shoulder pain TECHNIQUE: Frontal view of the chest. COMPARISON: No relevant prior studies available. FINDINGS: Lungs: Unremarkable. No consolidation. Pleural space: Unremarkable. No pneumothorax. Heart: Unremarkable. No cardiomegaly. Mediastinum: Unremarkable. Normal mediastinal contour. Bones/joints: Unremarkable. No acute fracture. IMPRESSION: No acute disease. Electronically signed by: Fanta Davey MD 05/01/2023 12:33 AM CDT Due to temporary technical issues with the PACS/Fluency reporting system, reports are being signed by the in house radiologist without review as a courtesy to ensure prompt reporting. The interpreting r adiologist is fully responsible for the content of the report.
--- NOTE | 2023-05-01 11:41 | RAD REPORT ---
EXAM DESCRIPTION: CT - Abdomen Pelvis W Contrast - 05/01/2023 6:33 am CLINICAL HISTORY: The patient is 67 years old and is Female; ABD PAIN IV ONLY Bed Name: 11 TECHNIQUE: Axial computed tomography images of the abdomen and pelvis with intravenous contrast. S agittal and coronal reformatted images were created and reviewed. This CT exam was performed using one or more of the following dose reduction techniques: automated exposure control, adjustment of t he mA and/or kV according to patient size, and/or use of iterative reconstruction technique. COMPARISON: No relevant prior studies available. FINDINGS: LUNG BASES: Calcified granuloma in the lateral left lung base. No consolidation. ABDOMEN: LIVER: Mild intrahepatic ductal dilatation with no abnormal dilatation of the common duct. GALLBLADDER AND BILE DUCTS: Numerous calcified stones demonstrated within the relatively contracted appearing gallbladder, with diffuse mural calcification compatible with porcelain gallbladder. Questionable tiny stone within the distal cystic duct (axial image 25/99) with additional jurgen pected obstructive stone within the gallbladder neck/proximal cystic duct (axial image 23/99). PANCREAS: Unremarkable No mass. No ductal dilation. SPLEEN: Unremarkable No splenomegaly. ADRENALS: Unremarkable No mass. KIDNEYS AND URETERS: Unremarkable No solid mass. No hydronephrosis. STOMACH AND BOWEL: Colonic diverticulosis without evidence of acute diverticulitis. No obstruction. PELVIS: APPENDIX: No findings to suggest acute appendicitis. BLADDER: Unremarkable No mass. REPRODUCTIVE: Unremarkable as visualized. ABDOMEN and PELVIS: INTRAPERITONEAL SPACE: Unremarkable No free air. No significant fluid collection. BONES/JOINTS: No acute fracture. No dislocation. SOFT TISSUES: Small fat-containing umbilical hernia. VASCULATURE: Mild calcified atherosclerosis of the abdominal aorta without aneurysmal dilatation. LYMPH NODES: Unremarkable No enlarged lymph nodes. IMPRESSION: 1. Porcelain gallbladder with cholelithiasis and suspected obstructive stone within th e gallbladder neck/proximal cystic duct. Recommend surgical consultation and confirmation of cystic d uct obstruction with HIDA scan, or MRCP. Further characterization by gallbladder ultrasound unlikely to be helpful given dense gallbladder mural calcification and patient body habitus. 2. No other acute findings in the abdomen or pelvis. 3. Colonic diverticulosis without evidence of acute diverticulitis. Electronically signed by: Rajiv Asencio MD 05/01/2023 01:00 AM CDT Due to temporary technical issues with the PACS/Fluency reporting system, reports are being signed by the in house radiologist without review as a courtesy to ensure prompt reporting. The interpreting r adiologist is fully responsible for the content of the report.
[2023-05-01] MEDS: NA CHLORIDE 0.9% 1,000 ML IV SCH (16:28)
--- NOTE | 2023-05-01 18:43 | CON ---
Date of Consultation: 05/01/2023 Diagnoses: Porcelain gallbladder, nausea. History Of Present Illness: This is the case of a 67-year-old patient who came to us last night with abdominal pain, nausea and vomiting and diarrhea. She stated that the nausea and diarrhea were for 2 days, the pain just for a few minutes was last night. Today, the pain is gone. She had nothing to eat so she has not had any nausea, vomiting today. She states she was known to have a bad gallbladd er with stones for a long time. She has not taken care of that yet. The patient was admitted and st arted on IV antibiotics, bowel rest and a surgical consult was obtained. Allergies: NONE. Family History: Noncontributory. Social History: She does not smoke. She does not drink alcohol. Medications: Reviewed. Review of Systems: Yesterday, nausea, vomiting, abdominal pain. Today, the symptoms are gone. She has no pain at this moment. She has history of anxiety. Physical Examination: General: The patient is awake, alert. HEENT: Pupils are equal and reactive. Anicteric. Neck: Supple. Chest: Clear. Heart: S1, S2. Abdomen: Soft and depressible. No guarding, rebound. No Moss sign. Extremities: Good capillary refill. Laboratory Data: Blood work shows WBC count of 10.1, hemoglobin 15.4. Potassium 4.5, creatinine is 0.99. Imaging including MRI, abdominal CT revealed multi stone cholelithiasis with porcelain gallbla dder. Assessment: This is a 67-year-old patient with well known history of bladder gallstone. She has not addressed that issue, but now we have another issue. We have a porcelain gallbladder. We explained to her that pathology may be associated with it and how sometimes maybe difficult to get it out, at the same time we should get it out of the way, sent it to Pathology to make sure there is no neoplasi a. Obviously, we discussed with her the pros and cons of that and also the different options that we have here in [place] to get a porcelain gallbladder. Since she has no pain right now she wanted to try some diet and then later do more investigation of the area, most likely if we find out what we flanagan spect may be any malignancy involved, then send her to a tertiary center to have the gallbladder eliceo steph. She understood. She wants a trial of diet. So we will proceed. If she fails then she is sylvia g to have to consider the options of cholecystectomy in this institution. CLEMENTE/VINOD Voice ID: [id number] Report ID: [id number]
[2023-05-01] MEDS: ACETAMINOPHEN 500 MG TAB PO PRN (20:36)
[2023-05-02 04:32] LABS: Absolute Lymphocytes (CBC) 0.7 K/uL (0.7-4.9); Absolute Monocytes 0.4 K/uL (0.1-1.3); Absolute Neutrophil 2.9 K/uL (1.8-8.0); Basophils % 0.4 % (0-1.3); Eosinophils % 0.2 % (0-4.4); Hematocrit 35.7 % (36.0-45.0); Hemoglobin 12.1 g/dL (12.0-15.0); Lymphocytes % 17.9 % (15.3-44.8); MCHC 34.1 g/dL (32.0-36.0); MPV 9.1 fL (7.6-11.3); Monocytes % 9.8 % (3.3-12.3); Neutrophils % 71.7 % (41.7-73.7); Nucleated Red Blood Cells % 0.1 % (0-0); Platelets 175 thou/uL (152-406); RBC Red Blood Cell Count 3.92 M/uL (3.86-4.86); Red Cell Distribution Width 12.8 % (12.1-15.2)
[2023-05-02 04:49] LABS: Albumin/Globulin Ratio 0.9 (1.1-1.8); Anion Gap 6.6 mEq/L (5.0-15.0); Bilirubin Total 1.2 mg/dL (0.2-1.0); Globulin 3.4 g/dL (2.3-3.5); Potassium 3.6 mEq/L (3.5-5.1); Protein, Total 6.4 g/dL (6.4-8.2)
[2023-05-02] MEDS: HYDRALAZINE HCL 20 MG/ML VIAL IV PRN (10:10)
--- NOTE | 2023-05-02 11:34 | P.PN ---
Subjective Date of Service: 05/02/23 Chief Complaint: Porcelain Gallbladder, acute cholecystitis, cholelithiasis. Pt is resting comfortably in bed. She denies any fever, chest pain or SOB. She complains of nausea and vomiting. 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 The Gen surgeon explained the procedure that is required. Pt denies any abd pain this am. No other complaints. Review of Systems General: Unremarkable Eyes: Unremarkable ENT: Unremarkable Respiratory: Unremarkable Cardiovascular: Unremarkable Gastrointestinal: Unremarkable Genitourinary: Unremarkable Musculoskeletal: Unremarkable Integumentary: Unremarkable Neurological: Unremarkable Lymphatics: Unremarkable Physical Examination - Vital Signs Temperature: 99.5 F Blood Pressure: 164/79 Pulse: 84 Respirations: 16 Pulse Ox (%): 99 - Physical Exam General: Alert, In no apparent distress, Oriented x3 HEENT: Atraumatic, Normocephalic, PERRLA Neck: Supple, 2+ carotid pulse no bruit Respiratory: Clear to auscultation bilaterally, Normal air movement Cardiovascular: No edema, Normal pulses, Regular rate/rhythm, Normal S1 S2 Capillary refill: <2 Seconds Gastrointestinal: Normal bowel sounds, Soft and benign, Non-distended Musculoskeletal: No clubbing, No swelling Integumentary: No rashes, No breakdown Neurological: Normal gait, Normal speech, Normal strength at 5/5 x4 extr Lymphatics: No axilla or inguinal lymphadenopathy Assessment And Plan - Plan Porcelain gallbladder/Severe sepsis 2/2 cholecystitis/cholelithiasis: Will continue iv zosyn and prn pain med. Gen surgeon is following. Pt is tolerating CLD. Waiting on further recommendation from Gen Surgeon. MRCP shows cholelithiasis, a stone within cystic duct, and calcified gall bladder wall. Lactic acidosis: resolved. Lactate improved. Trend lactate 1.0 <- 2.7. Will continue IVF. Htn: Will continue lisinoprol and amlodipine. DVT prophylaxis: lovenox Code: Full code Disposition: Pending hospital course.
[2023-05-02] MEDS: CETIRIZINE HCL 5 MG TABLET PO PRN (21:14)
[2023-05-02 23:11] VITALS: O2SAT 96
[2023-05-03 04:53] LABS: Absolute Lymphocytes (CBC) 0.9 K/uL (0.7-4.9); Absolute Monocytes 0.5 K/uL (0.1-1.3); Absolute Neutrophil 2.8 K/uL (1.8-8.0); Basophils % 0.5 % (0-1.3); Eosinophils % 0.1 % (0-4.4); Hemoglobin 12.7 g/dL (12.0-15.0); Lymphocytes % 22.1 % (15.3-44.8); MCH 30.5 pg (27.0-35.0); MCHC 33.5 g/dL (32.0-36.0); MPV 9.9 fL (7.6-11.3); Monocytes % 11.1 % (3.3-12.3); Neutrophils % 66.2 % (41.7-73.7); Platelets 191 thou/uL (152-406); RBC Red Blood Cell Count 4.17 M/uL (3.86-4.86); Red Cell Distribution Width 13.1 % (12.1-15.2)
[2023-05-03 05:26] LABS: Albumin 3.4 g/dL (3.4-5.0); Anion Gap 10.3 mEq/L (5.0-15.0); Bilirubin Total 0.8 mg/dL (0.2-1.0); Globulin 3.5 g/dL (2.3-3.5); Potassium 3.3 mEq/L (3.5-5.1); Protein, Total 6.9 g/dL (6.4-8.2)
[2023-05-03] MEDS: AMLODIPINE 5 MG TAB PO SCH (08:00)
[2023-05-03] MEDS: lisinopriL 10 MG TAB PO SCH (08:01)
[2023-05-03] MEDS ORDERED: LORATADINE 10 MG TAB PO PRN (08:04)
[2023-05-03] MEDS: POTASSIUM CL SA 10 MEQ TAB PO SCH (09:03)
--- NOTE | 2023-05-03 11:30 | P.DS ---
Admission Date: 05/01/23 Discharge Date: 05/03/23 Disposition: ROUTINE DISCHARGE Discharge Condition: GOOD Reason for Admission: Porcelain Gallbladder, acute cholecystitis, cholelithiasis. Brief History of Present Illness: 67-year-old female patient who came to ED with complaint of abdominal pain, nausea, vomiting, diarrhea. She reports pain has been going on for about 2 days and with associated nausea with diarrhea. Pain is rated 6-8 out of 10 in intensity. 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 She was started on broad-spectrum antibiotic therapy and was admitted for inpatient care. Surgeon was consulted for management of intra-abdominal pathology. Hospital Course: Pt is a 67-yo female with past medical history of htn, obesity and depression who came to ED with complaint of abdominal pain, nausea, vomiting, diarrhea. The symptoms started 2 days before this admission and progressively worsened to be associated with diarrhea. 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 She was started on broad-spectrum antibiotic therapy and was admitted for inpatient care. Dr. Garzon, Gen surgeon, was consulted for management of intra-abdominal pathology. Pt decided to try clear liquid diet before deciding whether to undergo cholecystectomy. Pt tolerated clear liquid d iet without yoel abdominal pain. Gen surgeon cleared pt for discharge. She was advised avoid fried food and follow up with Dr. Garzon in clinic for referral to a surgeon who will take out the porcelain gall bladder. Pt was in NAD prior to discharge. Vital Signs/Physical Exam: Temp Pulse Resp BP Pulse Ox 97.8 F 89 18 170/76 H 97 05/03/23 08:00 05/03/23 08:01 05/03/23 08:00 05/03/23 08:01 05/03/23 08:00 Laboratory Data at Discharge: WBC 4.20 thou/uL (4.3-10.9) L 05/03/23 03:34 Hgb 12.7 g/dL (12.0-15.0) 05/03/23 03:34 Hct 38.0 % (36.0-45.0) 05/03/23 03:34 Plt Count 191 thou/uL (152-406) 05/03/23 03:34 Sodium 143 mEq/L (136-145) 05/03/23 03:34 Potassium 3.3 mEq/L (3.5-5.1) L 05/03/23 03:34 BUN 4 mg/dL (7-18) L 05/03/23 03:34 Creatinine 0.73 mg/dL (0.55-1.02) 05/03/23 03:34 Glucose 105 mg/dL (74-106) 05/03/23 03:34 Total Bilirubin 0.8 mg/dL (0.2-1.0) 05/03/23 03:34 AST 53 U/L (15-37) H 05/03/23 03:34 ALT 69 U/L (13-56) H 05/03/23 03:34 Alkaline Phosphatase 99 U/L (45-117) 05/03/23 03:34 Lipase 30 U/L (13-75) 04/30/23 23:20 Home Medications: Albuterol Inhaler [Ventolin Inhaler*] 2 puff IH BIDP PRN 05/01/23 Celecoxib 200 mg PO DAILY 05/01/23 Escitalopram Oxalate 10 mg PO DAILY 05/01/23 Montelukast [Singulair*] 20 mg PO DAILY 05/01/23 Zinc Gluconate [Zinc] 50 mg PO DAILY 05/01/23 Amlodipine [Norvasc] 10 mg PO DAILY 30 Days #30 tab 05/03/23 Metoprolol Tartrate [Lopressor*] 25 mg PO BID 30 Days #60 tab 05/03/23 New Medications: Metoprolol Tartrate [Lopressor*] 25 mg PO BID 30 Days #60 tab Amlodipine [Norvasc] 10 mg PO DAILY 30 Days #30 tab Physician Discharge Instructions: Continue ad gale activity. DO not eat greasy or fried food. Continue clear liquid diet as tolerated. Take amlodipine and metoprolol as prescribed. Follow up with Dr. Garzon in clinic within 2 days for further evaluation. Diet: AHA Activity: Ad gale Followup: Amelie Calderon FNP [Primary Care Provider] -
[2023-05-03 14:48] VITALS: BP 162/73; TEMP 98.2
[2023-05-04] MEDS ORDERED: METOPROLOL XL 25 MG TAB PO SCH (09:00)
--- NOTE | 2023-05-04 14:28 | EKG ---
Test Date: 2023-04-30 Test Time: 23:08:12 Tire Spotter: VALERIE MEASUREMENT RESULTS: Intervals: Rate: 95 IA: 130 QRSD: 74 QT: 354 QTc: 444 [place]: P: 54 IA: 130 QRS: 30 T: 35 INTERPRETIVE STATEMENTS: Normal sinus rhythm Nonspecific ST and T wave abnormality Abnormal ECG Compared to ECG 04/01/2022 19:06:13 ST (T wave) deviation now present Electronically Signed On 05-04-23 14:17:21 CDT by Agusto Dan
== END 2023-05-03 14:28 | disposition home or self-care (01) | DRG 854 ==
LOC: ER 21:36 → ERHOLD 05-01 02:36 → 4TH 05-01 04:30
PROVIDERS: ADMIT Internal Medicine Nephrology; ATTEND Hospitalist
PROC: 0FT44ZZ Resection of Gallbladder, Percutaneous Endoscopic Approach (ICD-10-PCS; principal; 2023-05-01)
DX: A41.9 Sepsis, unspecified organism (principal); E87.20 Acidosis, unspecified; K80.00 Calculus of gallbladder with acute cholecystitis without obstruction; R65.20 Severe sepsis without septic shock; K21.9 Gastro-esophageal reflux disease without esophagitis; I10 Essential (primary) hypertension; F17.210 Nicotine dependence, cigarettes, uncomplicated; Z79.899 Other long term (current) drug therapy
CPT/HCPCS: 36415; 71045; 74177; 74181; 80053; 81001; 83605; 83690; 85025; 87040; 87804; 87811; 93005; 96361; 96374; 96375; 99285; J0360; J1650; J2270; J2405; J2543; J2550; J7030; Q9967

== ENCOUNTER 2023-06-17 20:42 | Emergency (ER) | payer OTHER ==
[2023-06-17] MEDS ORDERED: NA CHLORIDE 0.9% 1,000 ML ONE (21:55)
[2023-06-17] MEDS ORDERED: ONDANSETRON 4 MG/2 ML VIAL ONE (21:55)
[2023-06-17] MEDS ORDERED: FENTANYL CITR 100 MCG/2 ML ONE (21:55)
--- NOTE | 2023-06-17 22:12 | RAD REPORT ---
EXAM DESCRIPTION: RAD - Shoulder Right 2 View - 06/17/2023 10:04 pm CLINICAL HISTORY: PAIN COMPARISON: Shoulder Right 2 View dated 10/15/2021 FINDINGS: Moderate AC joint and glenohumeral joint arthritic changes are present. No acute fracture or dislocation is seen.
--- NOTE | 2023-06-17 22:12 | RAD REPORT ---
EXAM DESCRIPTION: RAD - Knee Left 3 View - 06/17/2023 10:04 pm CLINICAL HISTORY: PAIN COMPARISON: No comparisons FINDINGS: No acute fracture or dislocation is seen.
[2023-06-17 22:13] LABS: Absolute Basophils 0.1 K/uL (0-0.5); Absolute Eosinophils 0.1 K/uL (0-0.5); Absolute Lymphocytes (CBC) 2.2 K/uL (0.7-4.9); Absolute Monocytes 0.4 K/uL (0.1-1.3); Absolute Neutrophil 4.3 K/uL (1.8-8.0); Basophils % 0.8 % (0-1.3); Eosinophils % 0.8 % (0-4.4); Hematocrit 39.4 % (36.0-45.0); Lymphocytes % 30.9 % (15.3-44.8); MCH 30.2 pg (27.0-35.0); MCHC 32.9 g/dL (32.0-36.0); MCV 91.7 fL (80-100); MPV 9.5 fL (7.6-11.3); Monocytes % 5.5 % (3.3-12.3); Platelets 285 thou/uL (152-406); Red Cell Distribution Width 12.9 % (12.1-15.2)
[2023-06-17 22:24] LABS: ALT/SGPT 68 U/L (13-56); AST/SGOT 37 U/L (15-37); Albumin 3.9 g/dL (3.4-5.0); Alkaline Phosphatase 91 U/L (45-117); Anion Gap 11.5 mEq/L (5.0-15.0); BUN Blood Urea Nitrogen 10 mg/dL (7-18); Bicarbonate 24 mEq/L (21-32); Bilirubin Total 0.3 mg/dL (0.2-1.0); Glomerular Filtration Rate 84 ml/min (=/>90); Glucose Level 102 mg/dL (74-106); Potassium 3.5 mEq/L (3.5-5.1); Protein, Total 7.9 g/dL (6.4-8.2); Sodium Level 140 mEq/L (136-145)
[2023-06-17 22:39] LABS: Bilirubin Direct < 0.2 mg/dL (0-0.2); Bilirubin Indirect, Calculated 0.1 mg/dL (0.2-0.8); Troponin High Sensitivity < 3.0 pg/mL (<58.9)
[2023-06-17 22:47] LABS: Specific Gravity < 1.005 (1.005-1.030); Sqamous Epithelial <5 /HPF (None Seen); Urine Bacteria None Seen /HPF (<20); Urine Bilirubin NEGATIVE (Negative); Urine Blood Negative (Negative); Urine Clarity Turbid (Clear); Urine Color Colorless (Yellow); Urine Culture Reflex Order NOT NEEDED; Urine Glucose NEGATIVE (Negative); Urine Ketones NEGATIVE (Negative); Urine Microscopic Reflex YN ORDER UMIC; Urine Mucus Slight /HPF (None Seen); Urine Nitrite NEGATIVE (Negative); Urine Protein NEGATIVE (Negative); Urine RBC None Seen /HPF (None Seen); Urine Urobilinogen Normal (Normal); Urine WBC None Seen /HPF (<5)
[2023-06-17] MEDS ORDERED: HYDROCODONE/APAP 7.5/325 MG TAB ONE (22:54)
--- NOTE | 2023-06-17 23:27 | EDPHYS ---
Physician Documentation [facility] Name: Consuelo Bliss Age: 67 yrs Sex: Female : 1955 Arrival Date: 06/17/2023 Time: 20:42 Bed 4 Private MD: ED Physician Galen Cerrato HPI: 06/17 00:43 This 67 yrs old Female presents to ER via Wheelchair with complaints of Fall kb Injury, Knee Pain. 00:43 Patient is a 67-year-old female who presents after a fall. States she was at an event kb and had a couple of beers. States she bent over to pick something up, got dizzy and fell to the ground. Denies LOC. Reports pain to left knee and right shoulder. States she has had this dizziness several times before and her PCP is aware.. Historical: - Allergies: 06/16 21:26 Morphine; tl4 - PMHx: 21:26 Anxiety; GERD; tl4 - PSHx: 21:26 Cholecystectomy; tl4 - Immunization history:: Adult Immunizations unknown. - Infectious Disease History:: Denies. - Social history:: Smoking status: Patient reports the use of cigarette tobacco products, 1 cigarette per day. ROS: 06/17 00:31 Constitutional: As per HPI kb Exam: 00:30 Constitutional: This is a well developed, well nourished patient who is awake, alert, kb and in no acute distress. Head/Face: Normocephalic, atraumatic. ENT: Moist Mucous membranes Cardiovascular: Regular rate Respiratory: Respirations even and unlabored. No increased work of breathing. Talking in full sentences Abdomen/GI: Soft, non-tender. No distention Neuro: Awake and alert, GCS 15, oriented to person, place, time, and situation. Moves all extremities. Normal gait. 00:30 ECG was reviewed by the Attending Physician. 00:30 Musculoskeletal/extremity: Extremities: grossly normal except: noted in the anterior aspect of right shoulder: decreased ROM, pain, tenderness, ROM: limited active range of motion due to pain, Circulation is intact in all extremities. Sensation intact. Weight bearing: can bear weight with assistance only, 00:30 Skin: injury, abrasion(s), small abrasion noted, of the left knee, contusion(s), of the left knee, Vital Signs: 06/16 21:24 BP 118 / 62; Pulse 67; Resp 16; Temp 97.7; Pulse Ox 99% ; Weight 77.56 kg; Height 5 ft. tl4 1 in. ; Pain 8/10; 22:00 BP 115 / 70; Pulse 66; Resp 16; Pulse Ox 95% on R/A; km8 22:30 BP 170 / 64; Pulse 72; Resp 19; Pulse Ox 99% on R/A; Pain 7/10; km8 23:00 BP 128 / 67; Pulse 71; Resp 16; Pulse Ox 98% on R/A; km8 23:33 Temp 96.9(TE); tm6 21:24 Body Mass Index 32.31 (77.56 kg, 154.94 cm) tl4 21:24 Pain Scale: Adult tl4 22:30 Pain Scale: Adult km8 MDM: 20:50 Patient medically screened. kb 06/17 00:42 Differential diagnosis: contusion, fracture, sprain, strain. Data reviewed: vital kb signs, nurses notes. Historians other than the Patient: Family Member: Family. Counseling: I had a detailed discussion with the patient and/or guardian regarding the historical points, exam findings, and any diagnostic results supporting the discharge/admit diagnosis, lab results, radiology results, the need for outpatient follow up, a family practitioner, to return to the emergency department if symptoms worsen or persist or if there are any questions or concerns that arise at home. 06/16 21:42 Order name: Basic Metabolic Panel; Complete Time: 22:42 kb 06/16 21:42 Order name: CBC with Diff; Complete Time: 22:21 kb 06/16 21:42 Order name: Hepatic Function; Complete Time: 22:42 kb 06/16 21:42 Order name: Magnesium; Complete Time: 22:42 kb 06/16 21:42 Order name: Troponin High Sensitivity; Complete Time: 22:42 kb 06/16 21:42 Order name: Urinalysis w/ reflexes; Complete Time: 22:47 kb 06/16 21:42 Order name: Knee Left 3 View XRAY; Complete Time: 22:21 kb 06/16 21:42 Order name: Shoulder Right (2 View) XRAY; Complete Time: 22:21 kb 06/16 21:42 Order name: EKG; Complete Time: 21:42 kb 06/16 21:42 Order name: Cardiac monitoring; Complete Time: 21:51 kb 06/16 21:42 Order name: EKG - Nurse/Tech; Complete Time: 21:51 kb 06/16 21:42 Order name: IV Saline Lock; Complete Time: 21:51 kb 06/16 21:42 Order name: Labs collected and sent; Complete Time: 21:51 kb 06/16 21:42 Order name: NPO; Complete Time: 21:51 kb 06/16 21:42 Order name: O2 Per Protocol; Complete Time: 21:51 kb 06/16 21:42 Order name: O2 Sat Monitoring; Complete Time: 21:51 kb 06/16 22:50 Order name: Sling; Complete Time: 23:03 kb 06/16 22:50 Order name: Wound Care; Complete Time: 23:01 kb EC:30 Rate is 72 beats/min. Rhythm is regular. QRS [place] is Normal. [place] interval is normal at kb 108 msec. QRS interval is normal at 70 msec. QT interval is normal at 444 msec. Administered Medications: 06/16 22:01 Drug: fentaNYL (PF) IVP 25 mcg IVP once Route: IVP; Site: left antecubital; km8 22:30 Follow up: Response: No adverse reaction; Pain is decreased km8 23:27 Follow up: Response: No adverse reaction tm6 22:01 Drug: Ondansetron IVP 4 mg IVP once; over 2 minutes Route: IVP; Site: left antecubital; km8 22:30 Follow up: Response: No adverse reaction km8 23:27 Follow up: Response: No adverse reaction tm6 22:01 Drug: NS 0.9% IV 1000 ml IV at 1000 ml once Route: IV; Rate: 1000 ml; Site: left [facility] antecubital; 23:27 Follow up: IV Status: Completed infusion; IV Intake: 1000ml tm6 23:01 Drug: Hydrocodone-Acetaminophen PO (7.5 mg-325 mg) 1 tabs PO once Route: PO; tm6 23:27 Follow up: Response: No adverse reaction tm6 Disposition: 06/17 03:44 Co-signature as Attending Physician, Galen Cerrato MD I agree with the assessment sp4 and plan of care. I reviewed the patient's care provided by the Advanced Practice Provider and agree with the diagnosis and treatment plan. Disposition Summary: 06/17/23 23:24 Discharge Ordered Notes: Location: Home kb Condition: Stable kb Diagnosis - Contusion of left knee kb - Abrasion of lower leg - left knee kb - Dizziness and giddiness kb - Fall on same level, unspecified kb - Pain in right shoulder kb Followup: kb - With: Emergency Department - When: As needed - Reason: Worsening of condition Followup: kb - With: Private Physician - When: 2 - 3 days - Reason: Recheck today's complaints, Continuance of care, Re-evaluation by your physician Discharge Instructions: - Discharge Summary Sheet kb - Musculoskeletal Pain kb - Shoulder Pain, [id number] kb - Contusion, [id number] kb - Dizziness, [id number] kb Forms: - Medication Reconciliation Form kb - Antibiotic Education kb - Prescription Opioid Use kb - Patient Portal Instructions kb - Leadership Thank You Letter kb Prescriptions: - Diclofenac Sodium 75 mg Oral tablet, delayed release (enteric coated) - take 1 tablet ORAL route 2 times per day As needed; 30 tablet; Refills: 0, kb Product Selection Permitted - orphenadrine citrate 100 mg Oral Tablet Sustained Release - take 1 tablet ORAL route 2 times per day As needed; 20 tablet; Refills: 0, kb Product Selection Permitted Signatures: Dispatcher [employer] Fanny De La Paz, [employer] WORKING SUPERVISOR-Galen Lorenzo MD MD sp4 Meron Espinosa, ANTIONETTE RN km8 Evelina Ann RN RN tm6 Rory Martino RN RN tl4 Corrections: (The following items were deleted from the chart) 06/16 21:27 21:26 Allergies: No Known Allergies; tl4 tl4
--- NOTE | 2023-06-17 23:27 | ER ---
Nurse's Notes [facility] Name: Consuelo Bliss Age: 67 yrs Sex: Female : 1955 Arrival Date: 06/17/2023 Time: 20:42 Bed 4 Private MD: Diagnosis: Contusion of left knee;Abrasion of lower leg-left knee;Dizziness and giddiness;Fall on same level, unspecified;Pain in right shoulder Presentation: 06/16 21:24 Chief complaint: Patient states: Pt states she became dizzy after bending over and fell tl4 onto her right shoulder and left knee. No LOC. Coronavirus screen: At this time, the client does not indicate any symptoms associated with coronavirus-19. Ebola Screen: No symptoms or risks identified at this time. Initial Sepsis Screen: Does the patient meet any 2 criteria? No. Patient's initial sepsis screen is negative. Does the patient have a suspected source of infection? No. Patient's initial sepsis screen is negative. Risk Assessment: Do you want to hurt yourself or someone else? Patient reports no desire to harm self or others. Onset of symptoms was June 17, 2023 at 18:30. 21:24 Method Of Arrival: Wheelchair tl4 21:24 Acuity: ARMAND 3 tl4 Triage Assessment: 21:27 General: Appears uncomfortable, Behavior is calm, cooperative. Pain: Complains of pain tl4 in right arm and left leg. EENT: No signs and/or symptoms were reported regarding the EENT system. Neuro: Level of Consciousness is awake, alert, obeys commands, Oriented to person, place, time, situation, Moves all extremities. Full function Gait is steady. Cardiovascular: Capillary refill < 3 seconds Patient's skin is warm and dry. Respiratory: Airway is patent Respiratory effort is even, unlabored, Respiratory pattern is regular, symmetrical. GI: No signs and/or symptoms were reported involving the gastrointestinal system. : No signs and/or symptoms were reported regarding the genitourinary system. Derm: No signs and/or symptoms reported regarding the dermatologic system. Musculoskeletal: Reports pain in right arm and left leg. Historical: - Allergies: 21:26 Morphine; tl4 - PMHx: 21:26 Anxiety; GERD; tl4 - PSHx: 21:26 Cholecystectomy; tl4 - Immunization history:: Adult Immunizations unknown. - Infectious Disease History:: Denies. - Social history:: Smoking status: Patient reports the use of cigarette tobacco products, 1 cigarette per day. Screenin:52 [facility] [place] ED Fall Risk Assessment (Adult) History of falling in the last 3 months, cp4 including since admission Yes- single mechanical fall (1 pt) Confusion or Disorientation No (0 pts). [facility] [place] ED Fall Risk Assessment (Adult) History of falling in the last 3 months, including since admission Confusion or Disorientation Intoxicated or Sedated No (0 pts) Impaired Gait No (0 pts) Mobility Assist Device Used No (0 pt) Altered Elimination No (0 pt) Score/Fall Risk Level 0 - 2 = Low Risk Oriented to surroundings, Maintained a safe environment, Assessed \T\ reinforced patient's understanding of fall precautions, Hourly rounding (assess needs \T\ fall precautionary measures) done. Abuse screen: Denies threats or abuse. Nutritional screening: No deficits noted. Tuberculosis screening: No symptoms or risk factors identified. Assessment: 21:52 General: Appears uncomfortable, Behavior is calm, cooperative, appropriate for age. cp4 Pain:. Musculoskeletal: No deficits noted. Reports. 23:03 Reassessment: Patient appears in no apparent distress at this time. Patient and/or tm6 family updated on plan of care and expected duration. Pain level reassessed. Patient is alert, oriented x 3, equal unlabored respirations, skin warm/dry/pink. 23:33 Reassessment: Patient appears in no apparent distress at this time. tm6 Vital Signs: 21:24 BP 118 / 62; Pulse 67; Resp 16; Temp 97.7; Pulse Ox 99% ; Weight 77.56 kg; Height 5 ft. tl4 1 in. ; Pain 8/10; 22:00 BP 115 / 70; Pulse 66; Resp 16; Pulse Ox 95% on R/A; km8 22:30 BP 170 / 64; Pulse 72; Resp 19; Pulse Ox 99% on R/A; Pain 7/10; km8 23:00 BP 128 / 67; Pulse 71; Resp 16; Pulse Ox 98% on R/A; km8 23:33 Temp 96.9(TE); tm6 21:24 Body Mass Index 32.31 (77.56 kg, 154.94 cm) tl4 21:24 Pain Scale: Adult tl4 22:30 Pain Scale: Adult 8 ED Course: 20:49 Patient arrived in ED. ra3 20:50 Fanny Varela FNP-C [facility]. kb 20:50 Galen Cerrato MD is Attending Physician. kb 21:26 Triage completed. tl4 21:28 Arm band placed on left wrist. tl4 21:51 Basic Metabolic Panel Sent. cp4 21:51 CBC with Diff Sent. cp4 21:52 Bed in low position. Call light in reach. Side rails up X2. Provided Education on: fall.cp4 21:52 Hepatic Function Sent. cp4 21:52 Magnesium Sent. cp4 21:52 Troponin High Sensitivity Sent. cp4 21:52 Urinalysis w/ reflexes Sent. cp4 21:52 No provider procedures requiring assistance completed. Initial lab(s) drawn, by me, cp4 sent to lab. EKG done, by ED staff, reviewed by Galen Cerrato MD. Inserted saline lock: 20 gauge in left antecubital area, using aseptic technique. Blood collected. 21:54 Meron Espinosa, RN is Primary Nurse. km8 22:06 Knee Left 3 View XRAY In Process Unspecified. EDMS 22:06 Shoulder Right (2 View) XRAY In Process Unspecified. EDMS 22:29 Client placed on continuous cardiac and pulse oximetry monitoring. NIBP monitoring tm6 applied. monitor car operator on. Pulse ox on. NIBP on. Warm blanket given. Assisted to bathroom. 23:01 Dressings: non-adherent dressing x 1 left knee. Rob wrap to left knee Shoulder tm6 immobilizer applied on right shoulder. 23:33 IV discontinued, intact, bleeding controlled, No redness/swelling at site. Pressure tm6 dressing applied. Administered Medications: 22:01 Drug: fentaNYL (PF) IVP 25 mcg IVP once Route: IVP; Site: left antecubital; km8 22:30 Follow up: Response: No adverse reaction; Pain is decreased km8 23:27 Follow up: Response: No adverse reaction tm6 22:01 Drug: Ondansetron IVP 4 mg IVP once; over 2 minutes Route: IVP; Site: left antecubital; km8 22:30 Follow up: Response: No adverse reaction km8 23:27 Follow up: Response: No adverse reaction tm6 22:01 Drug: NS 0.9% IV 1000 ml IV at 1000 ml once Route: IV; Rate: 1000 ml; Site: left [facility] antecubital; 23:27 Follow up: IV Status: Completed infusion; IV Intake: 1000ml tm6 23:01 Drug: Hydrocodone-Acetaminophen PO (7.5 mg-325 mg) 1 tabs PO once Route: PO; tm6 23:27 Follow up: Response: No adverse reaction tm6 Medication: 21:52 VIS not applicable for this client. cp4 Intake: 23:27 IV: 1000ml; Total: 1000ml. tm6 Outcome: 23:24 Discharge ordered by . beltran 23:33 Discharged to home via wheelchair, with family, tm6 23:33 Condition: stable 23:33 Discharge instructions given to patient, family, Instructed on discharge instructions, follow up and referral plans. medication usage, Demonstrated understanding of instructions, follow-up care, medications, Prescriptions given X 2, 23:34 Patient left the ED. tm6 Signatures: Dispatcher [employer] EDMS Fanny Varela, SALES AND OPERATIONS TRAINEESandi SALES AND OPERATIONS TRAINEE-Annie Euced[place] 4 Meron Espinosa, RN RN km8 Evelina Ann RN RN tm6 Rory Martino RN RN tl4 Marilu Ho ra3 Corrections: (The following items were deleted from the chart) 21:27 21:26 Allergies: No Known Allergies; tl4 tl4 23:10 23:02 BP 170 / 64; Pulse 72bpm; Resp 19bpm; Pulse Ox 99% RA; Pain 08/18, Adult; tm6 km8
[2023-06-18 00:50] VITALS: BP 128/67; TEMP 96.9; O2SAT 98
--- NOTE | 2023-06-18 14:00 | EKG ---
Test Date: 2023-06-17 Test Time: 21:48:35 Email Producer: VÍCTOR MEASUREMENT RESULTS: Intervals: Rate: 72 MN: 108 QRSD: 70 QT: 406 QTc: 444 [place]: P: 53 MN: 108 QRS: 41 T: 31 INTERPRETIVE STATEMENTS: Sinus rhythm with short MN Otherwise normal ECG Compared to ECG 04/30/2023 23:08:12 Short MN interval now present ST (T wave) deviation no longer present Electronically Signed On 06-18-23 13:59:12 CDT by Agusto Dan
== END 2023-06-17 23:34 | disposition home or self-care (01) ==
LOC: ER 20:42
DX: S80.212A Abrasion, left knee, initial encounter (principal); S80.02XA Contusion of left knee, initial encounter; M25.511 Pain in right shoulder; R42 Dizziness and giddiness; W18.30XA Fall on same level, unspecified, initial encounter; Z72.0 Tobacco use; Z88.5 Allergy status to narcotic agent
CPT/HCPCS: 85025; 81001; 80048; 36415; 83735; 80076; 84484; 73030; 73562; J3010; J2405; J7030; 93005